=== PATIENT | male | born 1950 | race Caucasian/White ===

== ENCOUNTER → 2016-06-04 | Outpatient (CLI) | payer MEDICARE, OTHER ==
[~2016-06-04] MED LIST: ASPI-586 PO; GABA-486 PO; LISI10TA2 PO; LOVA20TA2 PO; MULT-974 PO; SAWP1CAP PO
--- NOTE | 2016-06-04 14:05 | Diagnostic Imaging Report ---
PROCEDURE: CT urinary tract, rule out kidney stone. TECHNIQUE: Multiple contiguous axial images were obtained through the abdomen and pelvis without the use of intravenous contrast. INDICATION: Left upper quadrant pain. FINDINGS: The lung bases appear clear. The liver, the gallbladder, the spleen, the adrenals, and the pancreas appear unremarkable. The kidneys have no hydronephrosis or focal lesion identified on this unenhanced exam. No urinary tract stones seen. The urinary bladder wall is thickened, may relate to cystitis. The prostate is mildly prominent. The bladder wall thickening could also be secondary to chronic prostate-related obstructive changes. No significant dilatation of the bladder is seen, however. The appendix is normal. No bowel obstruction. There is no significant fluid collection or free fluid in the abdomen or pelvis. The abdominal aorta is normal in caliber. The osseous structures demonstrate prominent degenerative changes in the thoracolumbar spine and fusion of the SI joints. IMPRESSION: No urinary tract stones. No hydronephrosis. The urinary bladder wall is thickened which could relate to cystitis or from chronic postobstructive changes. Dictated by: Dictated on workstation # [id number]
== END ==
LOC: RAD 09:32
PROVIDERS: ATTEND Nurse Practitioner Adult Health
DX: R10.12 Left upper quadrant pain (principal)
CPT/HCPCS: 74176

== ENCOUNTER 2016-06-18 13:20 | Outpatient (CLI) | payer MEDICARE, OTHER ==
[~2016-06-18] VITALS: Ht 170.2 cm; Wt 89.8 kg
[2016-06-18] MEDS ORDERED: MULT-974 PO (13:29)
[2016-06-18] MEDS ORDERED: ASPI-586 PO (13:29)
[2016-06-18] MEDS ORDERED: SAWP1CAP PO (13:29)
[2016-06-18] MEDS ORDERED: LISI10TA2 PO (13:29)
[2016-06-18] MEDS ORDERED: GABA-486 PO (13:29)
[2016-06-18] MEDS ORDERED: LOVA20TA2 PO (13:29)
== END 2016-06-18 13:30 ==
LOC: PREOP 13:20
PROVIDERS: ATTEND Surgery
DX: Z01.818 Encounter for other preprocedural examination (principal); R10.32 Left lower quadrant pain

== ENCOUNTER 2016-06-22 06:56 | Day surgery (SDC) | payer MEDICARE, OTHER ==
[~2016-06-22] VITALS: Ht 170.2 cm; Wt 89.8 kg
--- OUTSIDE RECORDS SUMMARY | 2016-06-22 06:59 | XMS REPORT | Continuity of Care Document ---
Author Author [facility] Organization [facility] Address Unknown Phone Unavailable Care Team Providers Care Lens Cleaner Name Role Phone JARRED PERSNO MD PCP Insurance Providers Payer Name Policy Number Subscriber Name Relationship [employer] [id number] Cristian Bro 18 Self / Same As Patient Enter Insurance Name [id number] Cristian Bro 18 Self / Same As Patient Advance Directives Directive Response Recorded Date/Time Advance Directives No 06/18/16 1:12pm Organ Donor No 06/18/16 1:12pm Resuscitation Status Full Code 06/18/16 1:12pm Problems No problem information available. Medications Current Home Medications Medication Dose Units Route Directions Days/Qty Instructions Start Date Lovastatin 20 Mg 20 Mg Oral Bedtime 06/18/16 Lisinopril 10 Mg 10 Mg Oral Daily 06/18/16 Multivitamin 1 Each 1 Each Oral Daily 06/18/16 Gabapentin 100 Mg 100 Mg Oral Twice A Day 06/18/16 Saw Annie Xtr/Zinc Picolin 1 Each 1 Each Oral Daily 06/18/16 Aspirin 81 Mg 81 Mg Oral Daily 06/18/16 Social History Social History Problem Response Recorded Date/Time Alcohol Use Past History 06/18/2016 1:12pm Recreational Drug Use No 06/18/2016 1:12pm Recent Foreign Travel No 06/18/2016 1:14pm Recent Infectious Disease Exposure No 06/18/2016 1:14pm Smoking Status Former Smoker 06/18/2016 1:12pm Recent Hopitalizations No 06/18/2016 1:12pm Query Response Start Date Stop Date Smoking Status Former Smoker Hospital Discharge Instructions No hospital discharge instructions. Plan of Care Discharge Date 06/18/16 1:30pm Prescriptions See Medication Section Functional Status No functional status results. Allergies, Adverse Reactions, Alerts No known allergies. Immunizations No immunization records. Vital Signs Acute Vital Signs Vital Response Date/Time Height (Feet) 5 feet 06/18/2016 1:12pm Height (Inches) 7.00 inches 06/18/2016 1:12pm Height (Calculated Centimeters) 170.330433 cm 06/18/2016 1:12pm Weight (Pounds) 198 pounds 06/18/2016 1:12pm Weight (Ounces) 0.0 oz 06/18/2016 1:12pm Weight (Calculated Grams) 96851.29 gm 06/18/2016 1:12pm Weight (Calculated Kilograms) 89.013744 kilograms 06/18/2016 1:12pm Calculated BMI 31.0 06/18/2016 1:12pm Results No known relevant diagnostic tests, laboratory data and/or discharge summary. Procedures No known history of procedures. Encounters Encounter Location Arrival/Admit Date Discharge/Depart Date Attending Provider Departed Clinic [facility] 06/18/16 1:20pm 06/18/16 1: 30pm ELMER PURCELL DO Registered Clinic [facility] 06/04/16 9:32am BILLIE ABARCA
--- OUTSIDE RECORDS SUMMARY | 2016-06-22 06:59 | XMS REPORT | Continuity of Care Document ---
Author Author [facility] Organization [facility] Address Unknown Phone Unavailable Care Team Providers Care Lead Handler Name Role Phone JARRED PERSON MD PCP Insurance Providers Payer Name Policy Number Subscriber Name Relationship [employer] [id number] Cristian Bro 18 Self / Same As Patient Enter Insurance Name [id number] Cristian Bro 18 Self / Same As [...] 7.00 inches 06/18/2016 1:12pm Height (Calculated Centimeters) 170.751983 cm 06/18/2016 1:12pm Weight (Pounds) 198 pounds 06/18/2016 1:12pm Weight (Ounces) 0.0 oz 06/18/2016 1:12pm Weight (Calculated Grams) 00055.29 gm 06/18/2016 1:12pm Weight (Calculated Kilograms) 89.979442 kilograms 06/18/2016 1:12pm Calculated BMI 31.0 06/18/2016 1:12pm Results No known relevant diagnostic tests, laboratory data and/or discharge summary. Procedures No known history of procedures. Encounters Encounter Location Arrival/Admit Date Discharge/Depart Date Attending Provider Departed Clinic [facility] 06/18/16 1:20pm 06/18/16 1: 30pm ELMER PURCELL DO Registered Clinic [facility] 06/04/16 9:32am BILLIE ABARCA
[2016-06-22] MEDS ORDERED: NS IV 1000 ML 1,000 ML IV STA (07:05)
[2016-06-22] MEDS ORDERED: LIDOCAINE JELLY 2% (XYLOCAINE) 5 ML TUBE MM PRN (07:15)
[2016-06-22] MEDS ORDERED: NALOXONE 0.4 MG/ML 1 ML (NARCAN) VIAL IVP PRN (07:15)
[2016-06-22] MEDS ORDERED: FLUMAZENIL (ROMAZICON) 0.1 MG/ML 5 ML VIAL INJ PRN (07:15)
[2016-06-22] MEDS ORDERED: proPOfol 200 MG/20 ML (DIPRIVAN) VIAL IV ONE (07:18)
[2016-06-22] MEDS ORDERED: MIDAZOLAM 2 MG/2 ML (VERSED) VIAL ONE (07:19)
[2016-06-22 07:28] VITALS: BP 155/80
--- NOTE | 2016-06-22 07:45 | Progress Note-Pre Operative ---
Pre-Operative Progress Note H&P Reviewed The H&P was reviewed, patient examined and no changes noted. Date H&P Reviewed: Jun 22, 2016 Time H&P Reviewed: 07:45 Pre-Operative Diagnosis: change in bowel habits, family history colon cancer llq abd pain ELMER PURCELL DO Jun 22, 2016 07:45
--- NOTE | 2016-06-22 08:18 | Progress Note-Post Operative ---
Post-Operative Progess Note Pre-Operative Diagnosis change in bowel habits, family history colon cancer llq abd pain Post-Operative Diagnosis colon polyps Post-Op Procedure Note Date of Procedure: Jun 22, 2016 Name of Procedure: colonoscopy c hot bx polypecty x 3 Procedure Note/Findings see note Anesthesia Type pre tool room supervisor Estimated blood loss (mL): none Specimen(s) collected descending colon, sigmoid and distal sigmoid colon polyps ELMER PURCELL DO Jun 22, 2016 08:18
--- NOTE | 2016-06-22 08:19 | Discharge Inst-Simple/Standard ---
Discharge Inst-Standard Patient Instructions/Follow Up Plan of Care/Instructions/FU: 2 weeks Paula Activity as Tolerated: Yes Discharge Diet: Regular Diet ELMER PURCELL DO Jun 22, 2016 08:19
[2016-06-22 08:30] VITALS: BP 110/74
[2016-06-22 09:00] VITALS: BP 133/76
[2016-06-22 10:31] VITALS: BP 133/76
--- NOTE | 2016-06-22 10:56 | OPERATIVE REPORT ---
PROCEDURE PHYSICIAN: ELMER PURCELL DATE OF PROCEDURE: 06/22/2016 PREOPERATIVE DIAGNOSIS: 1. Family history of colon cancer. 2. Left lower quadrant abdominal pain. 3. Change in bowel habits. POSTOPERATIVE DIAGNOSES: Colon polyps. PROCEDURE: Colonoscopy with hot biopsy polypectomy x 3. SURGEON: Paula. ANESTHESIA: Per POWDER WORKER. ESTIMATED BLOOD LOSS: None. COMPLICATIONS: None. INDICATIONS: The patient is a 65-year-old male who has not had a colonoscopy to date. He has had change in bowel habits and some left lower quadrant abdominal pain. He understands the risks and benefits of procedure and wished to proceed with the procedure. Consent was signed on the chart. PROCEDURE: The patient was taken to the endoscopy suite, placed in left lateral recumbent position. Timeout was performed. Digital rectal exam was performed. There is no palpable polyps, masses, ulcerations. The scope was inserted in the rectum and advanced all the way to the cecum minimal difficulty. Prep was adequate. The scope was then slowly retracted back. There were no polyps, masses or ulcerations within the cecum, ascending, transverse colon. Within the descending colon, a small polyp was present which hot biopsy polypectomy was performed. The scope was continued be slowly retracted back. In the more proximal sigmoid a small polyp was present which hot biopsy polypectomy was performed. The scope was continued be slowly retracted back and in the distal sigmoid there is a 3rd polyp, which hot biopsy polypectomy was performed. The scope was continued to be slowly retracted back until it was in the rectum, where it was also retroflexed and there were some slight internal hemorrhoids. The scope was returned to its normal position and slowly withdrawn until completely removed noting no further pathology. RECOMMENDATIONS: The patient will follow-up in the office to discuss pathology in approximately two weeks. I would recommend repeat colonoscopy in 3 years. If he has any problems prior to that, he should be reevaluated at that time. Job ID: [id number] Dictated Date: 06/22/2016 08:21:52 Ict Customer Support Officer Date: 06/22/2016 10:50:43 / merari
== END 2016-06-22 09:15 | disposition home or self-care (01) ==
LOC: SDC 06:56
PROVIDERS: ATTEND Surgery
DX: D12.4 Benign neoplasm of descending colon (principal); D12.5 Benign neoplasm of sigmoid colon; K63.5 Polyp of colon; R19.4 Change in bowel habit; K64.8 Other hemorrhoids; Z80.0 Family history of malignant neoplasm of digestive organs

== ENCOUNTER 2019-03-14 09:22 | Outpatient (CLI) | payer MEDICARE, OTHER ==
[~2019-03-14] VITALS: Ht 170.2 cm; Wt 90.0 kg
[~2019-03-14 09:22] MED LIST changes: -SAWP1CAP PO; +[UNRECOGNIZED DRUG - OTHER] PO
[2019-03-14] MEDS ORDERED: OMG1KC PO (09:29)
[2019-03-14] MEDS ORDERED: NAPR220T66 PO (09:29)
[2019-03-14] MEDS ORDERED: SAW1CAPS6 PO (09:29)
[2019-03-15] MEDS ORDERED: IBUP-2055 PO (08:00)
[2019-03-15] MEDS ORDERED: ACET-77 PO (08:00)
[2019-03-15] MEDS ORDERED: CHON400C PO (08:00)
== END 2019-03-14 09:42 | disposition home or self-care (01) ==
LOC: PREOP 09:22
PROVIDERS: ATTEND Surgery
DX: Z01.818 Encounter for other preprocedural examination (principal)

== ENCOUNTER 2019-03-15 07:22 | Day surgery (SDC) | payer MEDICARE, OTHER ==
[~2019-03-15] VITALS: Ht 170 cm; Wt 90.0 kg
[2019-03-15] VITALS (11 sets, daily range): BP systolic 137–174; BP diastolic 76–90
[~2019-03-15 07:22] MED LIST changes: +NAPR220T66 PO; +OMG1KC PO; +SAW1CAPS6 PO
--- NOTE | 2019-03-15 07:39 | Progress Note-Pre Operative ---
Pre-Operative Progress Note H&P Reviewed The H&P was reviewed, patient examined and no changes noted. Date Seen by Provider: Mar 15, 2019 Time Seen by Provider: 07:38 Date H&P Reviewed: Mar 15, 2019 Time H&P Reviewed: 07:38 Pre-Operative Diagnosis: cyst back ELMER PURCELL DO Mar 15, 2019 7:38 am
[2019-03-15] MEDS ORDERED: ONDANSETRON 4 MG/2 ML (SDV) Z0FRAN ONE (07:41)
[2019-03-15] MEDS ORDERED: LIDOCAINE PF 2% 5 ML (XYLOCAINE) VIAL ONE (07:41)
[2019-03-15] MEDS ORDERED: MIDAZOLAM 2 MG/2 ML (VERSED) VIAL ONE (07:41)
[2019-03-15] MEDS ORDERED: proPOfol 200 MG/20 ML (DIPRIVAN) VIAL IV ONE (07:41)
[2019-03-15] MEDS ORDERED: fentaNYL INJECTION 100 MCG/2 ML AMP ONE (07:41)
[2019-03-15] MEDS ORDERED: BUP/EPI 0.5% 1:200,000 (SENSORCAINE) 30 ML VIAL ONE (07:52)
[2019-03-15] MEDS ORDERED: LACTATED RINGERS 1,000 ML IV PRN (07:53)
[2019-03-15] MEDS ORDERED: CHON400C PO (08:00)
[2019-03-15] MEDS ORDERED: ceFAZolin 2 GM IV Premixed 50 ML IV ONE (08:00)
[2019-03-15] MEDS ORDERED: IBUP-2473 PO (08:00)
[2019-03-15] MEDS ORDERED: ACET-78 PO (08:00)
[2019-03-15] MEDS ORDERED: PHENYLEPHRINE 100 MCG/ML 10 ML (ANESTHESIA) SYR ONE (08:45)
[2019-03-15] MEDS ORDERED: SEVOFLURANE (ULTANE) 15 ML INHAL SOLN ONE ×2 (08:45→09:36)
--- NOTE | 2019-03-15 09:39 | Progress Note-Post Operative ---
Post-Operative Progess Note Surgeon (s)/Community Living Specialist (s) Surgeon ELMER PURCELL DO Community Living Specialist: na Pre-Operative Diagnosis cyst back Post-Operative Diagnosis same Procedure & Operative Findings Date of Procedure 03/15/19 Procedure Performed/Findings excision cyst of back 4x3 cm Anesthesia Type gen Estimated Blood Loss Estimated blood loss (mL): min Specimens/Packing Specimens Removed cyst back ELMER PURCELL DO Mar 15, 2019 09:39
--- NOTE | 2019-03-15 09:49 | Discharge Inst-Simple/Standard ---
Discharge Inst-Standard Patient Instructions/Follow Up Plan of Care/Instructions/FU: 12-14 days Paula Activity as Tolerated: No Discharge Diet: Regular Diet Other Inst to Patient Follow up Appt: Make appointment for 12-14 days Instructions: No strenuous activity. May shower in 24 hours, no tub bath or soaking. Use incentive spirometer at home as directed. No Smoking Skin/Wound Care: May remove bandages in 24 hours. Symptoms to Report: Appetite Changes, Extremity Discoloration, Numbness/Tingling, Swelling Increased, Bleeding Excessive, Eyesight Changes, Pain Increased, Urine Color Change, Constipation(Persistent), Fever over 101 degree F, Pain/Pressure in chest, Urinating Difficulty, Cough Up/Vomit Blood, Heart Beat Irreg/Pounding, Pain/Pressure in jaw, Vaginal Bleeding Increase, Cramps in feet or legs, Lightheadedness, Pain/Pressure in shoulder, Diarrhea(Persistent), Memory Changes Suddenly, Questions/Concerns, Weight gain consecutive days, Dizziness/Fainting, Nausea/Vomiting, Shortness of Breath, Weight gain over 2 pounds If questions or concerns contact your physician Or seek help at emergency department. ELMER PURCELL DO Mar 15, 2019 09:45
[2019-03-15] MEDS ORDERED: ONDANSETRON 4 MG/2 ML (SDV) Z0FRAN IVP PRN (10:00)
[2019-03-15] MEDS ORDERED: HYDROmorphone 2 MG/ML VIAL (DILAUDID) IV ONE (10:00)
--- NOTE | 2019-03-15 12:01 | Anesthesia-General Post-Op ---
General Patient Condition Mental Status/LOC: Same as Preop Cardiovascular: Satisfactory Nausea/Vomiting: Absent Respiratory: Satisfactory Pain: Controlled Complications: Absent Post Op Complications Complications None Follow Up Care/Instructions Patient Instructions None needed. Anesthesia/Patient Condition Patient Condition Patient is doing well, no complaints, stable vital signs, no apparent adverse anesthesia problems. No complications reported per nursing. STACIE MORRELL CRNA Mar 15, 2019 12:01
--- NOTE | 2019-03-15 15:45 | OPERATIVE REPORT ---
DATE OF SERVICE: 03/15/2019 PREOPERATIVE DIAGNOSIS: Cyst of back. POSTOPERATIVE DIAGNOSIS: Cyst of back. PROCEDURE: Excision of back cyst 4 x 3 cm. SURGEON: Elmer Mitchell DO ANESTHESIA: General. ESTIMATED BLOOD LOSS: Minimal. COMPLICATIONS: None. INDICATIONS: The patient is a 68-year-old male with a cyst on his back that he has had for a long time. He states he has had it previously drained. He wishes to have it removed. He understands risks and benefits of procedure and wished to proceed with procedure. Consent was signed in the chart. DESCRIPTION OF PROCEDURE: The patient was taken to the operating suite, was placed in the right lateral recumbent position. Timeout was performed. Local anesthetic was infiltrated. An elliptical incision was made over the cyst keeping a little punctate opening removing this portion of the skin. The cyst was then dissected around circumferentially with Metzenbaum's and cyst of the skin and the attachment to the cyst and the cyst were all removed intact. Overall, dimensions were 4 x 3 cm. The wound was then irrigated and the skin was then closed using 2-0 Prolene in vertical mattress fashion. The area was then washed and dried and sterile bandage was applied. The patient tolerated procedure well without any complications. He was taken to recovery room in stable condition. Job ID: [id number] DocumentID: [id number] Dictated Date: 03/15/2019 13:31:16 Passenger Relations Representative Date: 03/15/2019 15:45:17 Dictated By: ELMER MITCHELL DO
== END 2019-03-15 11:58 | disposition home or self-care (01) ==
LOC: SDC 07:22
PROVIDERS: ATTEND Surgery
DX: L72.0 Epidermal cyst (principal); I10 Essential (primary) hypertension; I63.9 Cerebral infarction, unspecified; F17.200 Nicotine dependence, unspecified, uncomplicated; Z79.899 Other long term (current) drug therapy; Z79.82 Long term (current) use of aspirin; Z80.0 Family history of malignant neoplasm of digestive organs; Z82.49 Family history of ischemic heart disease and other diseases of the circulatory system; Z82.0 Family history of epilepsy and other diseases of the nervous system; E78.5 Hyperlipidemia, unspecified
CPT/HCPCS: 87081; 88304

== ENCOUNTER 2022-05-10 13:16 | Inpatient (IN) | payer MEDICARE, OTHER ==
[~2022-05-10] VITALS: Ht 170 cm; Wt 95.8 kg
[~2022-05-10 13:16] MED LIST changes: +ACET-78 PO; +CHON400C PO; +IBUP-2473 PO; -LISI10TA2 PO; +LISI10TA25 PO
--- NOTE | 2022-05-10 13:24 | ED General ---
General Stated Complaint: SOB; TRISHA ANKLE SWELLING Source of Information: Patient Exam Limitations: No Limitations History of Present Illness Date Seen by Provider: May 10, 2022 Time Seen by Provider: 13:24 Initial Comments Patient is a 71 year old male who presents with shortness of breath waking him from sleep bilateral leg swelling. Symptoms gradually worsened over the past week. Patient is approximately 4 weeks recovering from viral syndrome. He denies fever chills, nausea vomiting or sweats. He does report occasional cough and chest congestion. Denies palpitations. Does report dyspnea with exertion. Patient has not been evaluated by his PCP for the symptoms. Timing/Duration: 4-6 Hours Severity: Moderate Modifying Factors: improves with Other Associated Systoms: Other Allergies and Home Medications Allergies Coded Allergies: No Known Drug Allergies (Unverified , 06/18/16) Patient Home Medication List Home Medication List Reviewed: Yes Acetaminophen (Acetaminophen) 500 Mg Tablet, 600 MG PO HS, (Reported) Entered as Reported by: MAN HAJI on 03/15/19 0800 Aspirin (Aspir 81) 81 Mg Tablet.dr, 81 MG PO DAILY, (Reported) Entered as Reported by: SANDEE YEE on 06/18/16 1329 Chondroitin Sulfate A Sodium (Optiflex-C) 400 Mg Capsule, 400 MG PO DAILY, (Reported) Entered as Reported by: MAN HAJI on 03/15/19 0800 Gabapentin (Gabapentin) 100 Mg Capsule, 100 MG PO DAILY, (Reported) Entered as Reported by: SANDEE YEE on 06/18/16 1329 Ibuprofen (Ibuprofen) 200 Mg Tablet, 600 MG PO HS, (Reported) Entered as Reported by: MAN HAJI on 03/15/19 0800 Lisinopril (Lisinopril) 10 Mg Tablet, 10 MG PO DAILY, (Reported) Entered as Reported by: SANDEE YEE on 06/18/16 1329 Lovastatin (Lovastatin) 20 Mg Tablet, 20 MG PO HS, (Reported) Entered as Reported by: SANDEE YEE on 06/18/16 1329 Multivitamin (Multi-Vitamin Daily) 1 Each Tablet, 1 EACH PO DAILY, (Reported) Entered as Reported by: SANDEE YEE on 06/18/16 1329 [place] 3 Polyunsat Fatty Acids (Fish Oil 1,000 mg Capsule) 1,000 Mg Cap, 1,000 MG PO DAILY, (Reported) Entered as Reported by: SANDEE YEE on 03/14/19928 Saw Manor Xtr/Zinc Picolin (Saw Manor Ext 160 mg Cap) 1 Each Capsule, 1 EACH PO DAILY, (Reported) Entered as Reported by: SANDEE YEE on 03/14/19928 Review of Systems Review of Systems Constitutional: see HPI EENTM: see HPI Respiratory: see HPI Cardiovascular: see HPI Gastrointestinal: see HPI Genitourinary: see HPI Musculoskeletal: see HPI Skin: see HPI Psychiatric/Neurological: See HPI Hematologic/Lymphatic: See HPI Immunological/Allergic: see HPI All Other Systems Reviewed Negative Unless Noted: No Past Vzbegul-Bihvog-Ewthpe Hx Patient Social History Tobacco Use?: No Immunizations Up To Date Tetanus Booster (TDap): Unknown Seasonal Allergies Seasonal Allergies: Yes Past Medical History Surgeries: No Respiratory: No Currently Using CPAP: No Currently Using BIPAP: No Cardiac: Yes Hypertension Neurological: Yes Stroke Reproductive Disorders: No Sexually Transmitted Disease: No HIV/AIDS: No Genitourinary: Yes Benign Prostatic Hyperpl Gastrointestinal: No Musculoskeletal: No Endocrine: No HEENT: No Loss of Vision: Denies Hearing Impairment: Denies Cancer: No Psychosocial: No Integumentary: Yes (cyst on back) Blood Disorders: No Physical Exam Vital Signs Vital Signs - First Documented Capillary Refill : Height, Weight, BMI Height: 5'7.00" Weight: 198lbs. 0.0oz. 89.397519yp; 31.14 BMI Method: General Appearance: No Apparent Distress, WD/WN Eyes: Bilateral Eye Normal Inspection, Bilateral Eye PERRL HEENT: PERRL/EOMI, Normal ENT Inspection, Pharynx Normal Neck: Supple Respiratory: Decreased Breath Sounds Cardiovascular: Irregularly Irregular, Other (Bipedal edema) Gastrointestinal: Non Tender, Soft Neurologic/Psychiatric: Alert, Oriented x3, No Motor/Sensory Deficits Focused Exam Sepsis Stage: Ruled Out Progress/Results/Core Measures Suspected Sepsis SIRS Temperature: Pulse: Respiratory Rate: Laboratory Tests 05/10/22 14:06: White Blood Count 15.2H Blood Pressure / Mean: Laboratory Tests 05/10/22 14:06: Creatinine 0.71, Platelet Count 479H, Total Bilirubin 0.3 Results/Orders Lab Results Laboratory Tests Test 05/10/22 13:51 05/10/22 14:06 Range/Units Influenza Type A (RT-PCR) Not Detected Not Detecte Influenza Type B (RT-PCR) Not Detected Not Detecte SARS-CoV-2 RNA (RT-PCR) Not Detected Not Detecte White Blood Count 15.2 H 4.3-11.0 10^3/uL Red Blood Count 4.36 4.30-5.52 10^6/uL Hemoglobin 13.0 L 13.3-17.7 g/dL Hematocrit 39 L 40-54 % Mean Corpuscular Volume 90 80-99 fL Mean Corpuscular Hemoglobin 30 25-34 pg Mean Corpuscular Hemoglobin Concent 33 32-36 g/dL Red Cell Distribution Width 13.1 10.0-14.5 % Platelet Count 479 H 130-400 10^3/uL Mean Platelet Volume 9.6 9.0-12.2 fL Immature Granulocyte % (Auto) 1 % Neutrophils (%) (Auto) 64 42-75 % Lymphocytes (%) (Auto) 23 12-44 % Monocytes (%) (Auto) 12 0-12 % Eosinophils (%) (Auto) 1 0-10 % Basophils (%) (Auto) 0 0-10 % Neutrophils # (Auto) 9.7 H 1.8-7.8 10^3/uL Lymphocytes # (Auto) 3.5 1.0-4.0 10^3/uL Monocytes # (Auto) 1.8 H 0.0-1.0 10^3/uL Eosinophils # (Auto) 0.1 0.0-0.3 10^3/uL Basophils # (Auto) 0.1 0.0-0.1 10^3/uL Immature Granulocyte # (Auto) 0.1 0.0-0.1 10^3/uL Neutrophils % (Manual) 67 % Lymphocytes % (Manual) 18 % Monocytes % (Manual) 14 % Eosinophils % (Manual) 0 % Basophils % (Manual) 1 % Band Neutrophils 0 % D-Dimer 4.04 H 0.00-0.49 UG/ML Sodium Level 136 135-145 MMOL/L Potassium Level 4.7 3.6-5.0 MMOL/L Chloride Level 98 98-107 MMOL/L Carbon Dioxide Level 30 21-32 MMOL/L Anion Gap 8 5-14 MMOL/L Blood Urea Nitrogen 9 7-18 MG/DL Creatinine 0.71 0.60-1.30 MG/DL Estimat Glomerular Filtration Rate 97 BUN/Creatinine Ratio 13 Glucose Level 120 H 70-105 MG/DL Calcium Level 9.5 8.5-10.1 MG/DL Corrected Calcium 9.7 8.5-10.1 MG/DL Total Bilirubin 0.3 0.1-1.0 MG/DL Aspartate Amino Transf (AST/SGOT) 37 H 5-34 U/L Alanine Aminotransferase (ALT/SGPT) 90 H 0-55 U/L Alkaline Phosphatase 177 H 40-136 U/L Troponin I < 0.30 <0.30 NG/ML Pro-B-Type Natriuretic Peptide 342.0 H <125.0 PG/ML Total Protein 6.7 6.4-8.2 GM/DL Albumin 3.7 3.2-4.5 GM/DL My Orders Orders - CHRISTIN ZAPATA DO Cbc With Automated Diff (05/10/22 13:53) Comprehensive Metabolic Panel (05/10/22 13:53) Troponin I Fs (05/10/22 13:53) Probnp Fs (05/10/22 13:53) Chest 1 View Ap/Pa Only (05/10/22 13:53) Fibrin Degradation Products (05/10/22 13:53) Covid 19 Inhouse Test (05/10/22 13:54) Influenza A And B By Pcr (05/10/22 13:54) Isolation Central Supply Req (05/10/22 13:54) Diltiazem Drip Pre-Mix (Cardizem Drip Pr (05/10/22 14:30) Diltiazem Injection (Cardizem Injection) (05/10/22 14:30) Manual Differential (05/10/22 14:06) Ekg Tracing (05/10/22 14:50) Ekg Tracing (05/10/22 14:50) Ct Angio Chest W (05/10/22 14:54) Iohexol Injection (Omnipaque 350 Mg/Ml 1 (05/10/22 15:15) Received Contrast (Hold Metformin- Contr (05/10/22 15:15) Sodium Chloride Flush (Catheter Flush Sy (05/10/22 15:15) Ns (Ivpb) (Sodium Chloride 0.9% Ivpb Bag (05/10/22 15:15) Digoxin Injection (Lanoxin Injection) (05/10/22 16:15) Medications Given in ED Current Medications Medications Dose Ordered Sig/Judy Route Start Time Stop Time Status Last Admin Dose Admin Digoxin 0.5 mg ONCE ONCE IV 05/10/22 16:15 05/10/22 16:16 DC 05/10/22 16:15 0.5 MG Diltiazem HCl 20 mg ONCE ONCE IVP 05/10/22 14:30 05/10/22 14:31 DC 05/10/22 14:37 20 MG Iohexol 100 ml ONCE ONCE IV 05/10/22 15:15 05/10/22 15:16 DC 05/10/22 15:34 100 ML Sodium Chloride 100 ml ONCE ONCE IV 05/10/22 15:15 05/10/22 15:16 DC 05/10/22 15:34 100 ML Vital Signs/I&O 05/10/22 05/10/22 05/10/22 05/10/22 13:37 13:37 14:37 14:38 Temp 36.6 Pulse 95 185 185 Resp 17 B/P (MAP) 199/97 (131) 125/69 125/69 O2 Delivery Room Air Room Air Capillary Refill : Departure Communication (Admissions) CTA chest: No findings of PE. Pulmonary vascular congestion noted to present. Chest x-ray: No discrete infiltrate per Patient with shortness of breath and nocturnal paroxysmal dyspnea with findings of new onset A. fib with RVR in the emergency department. Patient placed on Cardizem for rate control. Elevated D-dimer, CTA negative for presence of PE. Symptoms improved with treatment. Will admit to the hospital service with cardiology consult. Impression Primary Impression: New onset a-fib Additional Impression: Atrial fibrillation with RVR Disposition: ADMITTED INPATIENT Condition: Critical Departure-Patient Inst. Referrals: ROSALINDA ZAYAS APRN (PCP) Primary Care Physician [facility] (Family) Primary Care Physician CHRISTIN ZAPATA DO May 10, 2022 13:24
[2022-05-10 14:20] LABS: BASOPHILS # (AUTO) 0.1 10^3/uL (0.0-0.1); BASOPHILS % (AUTO) 0 % (0-10); EOSINOPHILS # (AUTO) 0.1 10^3/uL (0.0-0.3); EOSINOPHILS % (AUTO) 1 % (0-10); HEMATOCRIT 39 % (40-54); LYMPHOCYTES # (AUTO) 3.5 10^3/uL (1.0-4.0); LYMPHOCYTES % (AUTO) 23 % (12-44); MEAN CORPUSCULAR HEMOGLOBIN 30 pg (25-34); MEAN CORPUSCULAR HGB CONC 33 g/dL (32-36); MEAN CORPUSCULAR VOLUME 90 fL (80-99); MEAN PLATELET VOLUME 9.6 fL (9.0-12.2); MONOCYTES # (AUTO) 1.8 10^3/uL (0.0-1.0); MONOCYTES % (AUTO) 12 % (0-12); NEUTROPHILS # (AUTO) 9.7 10^3/uL (1.8-7.8); NEUTROPHILS % (AUTO) 64 % (42-75); PLATELET COUNT 479 10^3/uL (130-400); WHITE BLOOD COUNT 15.2 10^3/uL (4.3-11.0)
--- NOTE | 2022-05-10 14:25 | Diagnostic Imaging Report ---
EXAMINATION: Chest 1 view HISTORY: SOA COMPARISON: None available. FINDINGS: Heart size is enlarged. Left-sided pleural effusion with mild left basilar atelectasis or consolidation. No pneumothorax. The osseous structures are intact. IMPRESSION: 1. Cardiomegaly with possible small left pleural effusion and left basilar atelectasis or consolidation. Dictated by: Dictated on workstation # [id number]
[2022-05-10] MEDS ORDERED: dilTIAZem DRIP PRE-MIX 125 ML IV SCH (14:30)
[2022-05-10 14:48] LABS: ALANINE AMINOTRANSFERASE 90 U/L (0-55); ALKALINE PHOSPHATASE 177 U/L (40-136); BILIRUBIN,TOTAL 0.3 MG/DL (0.1-1.0); BUN/CREATININE RATIO 13; CALCIUM 9.5 MG/DL (8.5-10.1); CARBON DIOXIDE 30 MMOL/L (21-32); CHLORIDE 98 MMOL/L (98-107); CREATININE SERUM 0.71 MG/DL (0.60-1.30); GFR ESTIMATED 97; GLUCOSE 120 MG/DL (70-105); POTASSIUM 4.7 MMOL/L (3.6-5.0); SODIUM 136 MMOL/L (135-145); TOTAL PROTEIN 6.7 GM/DL (6.4-8.2)
[2022-05-10 14:49] LABS: ALBUMIN 3.7 GM/DL (3.2-4.5)
[2022-05-10 14:57] LABS: BAND NEUTROPHILS 0 %; BASOPHILS % (MANUAL) 1 %; EOSINOPHILS % (MANUAL) 0 %; LYMPHOCYTES % (MANUAL) 18 %; MONOCYTES % (MANUAL) 14 %; NEUTROPHILS % (MANUAL) 67 %
[2022-05-10] MEDS ORDERED: CATHETER FLUSH 10 ML SYR IV PRN (15:15)
[2022-05-10] MEDS ORDERED: IOHEXOL 350 MG/ML 100 ML (OMNIPAQUE 350) VIAL IV ONE (15:15)
[2022-05-10] MEDS ORDERED: HOLD METFORMIN - RECEIVED CONTRAST 20 ML VIAL IV SCH (15:15)
[2022-05-10] MEDS ORDERED: NS 100 ML (IVPB) BAG IV ONE (15:15)
--- NOTE | 2022-05-10 15:49 | Diagnostic Imaging Report ---
PROCEDURE: CT angiography of the chest with contrast. TECHNIQUE: Multiple contiguous axial images were obtained through the chest after uneventful bolus administration of intravenous contrast. 3D reconstructed CTA MIP acquisitions were also performed. Auto Exposure Controls were utilized during the CT exam to meet ALARA standards for radiation dose reduction. INDICATION: Dyspnea with elevated D-dimer There is good opacification of the pulmonary arteries without intraluminal filling defect. Thoracic aorta is of normal caliber. There is large pericardial effusion with small right and [id number] left pleural effusion. There is left basilar atelectasis and/or pneumonitis. No pathologically enlarged adenopathy is seen within the thorax. Upper abdominal sections reveal no acute abnormality. IMPRESSION: No pulmonary embolism is identified however there is large amount of pericardial fluid with small amount of right and moderate amount of left pleural fluid present. Dictated by: Dictated on workstation # [id number]
[2022-05-10] MEDS ORDERED: DIGOXIN 0.25 MG/ML (LANOXIN) 2 ML AMP IV ONE (16:15)
[2022-05-10] MEDS ORDERED: ONDANSETRON 4 MG/2 ML (SDV) Z0FRAN IV PRN (18:30)
[2022-05-10] MEDS ORDERED: ANTACID SUSP 30 ML UDC (MYLANTA) PO PRN (18:30)
[2022-05-10] MEDS ORDERED: BISACODYL 10 MG SUPP (DULCOLAX) PR PRN (18:30)
[2022-05-10] MEDS ORDERED: MELATONIN 3 MG TABLET PO PRN (18:30)
[2022-05-10] MEDS ORDERED: morphine INJ 4 MG/ML 1 ML (VIAL/SYRINGE) IV PRN (18:30)
[2022-05-10] MEDS ORDERED: diphenhydrAMINE 25 MG TAB (BENADRYL) PO PRN (18:30)
[2022-05-10] MEDS ORDERED: diphenhydrAMINE 50 MG/ML INJ (BENADRYL) IVP PRN (18:30)
[2022-05-10] MEDS ORDERED: ACETAMINOPHEN 325 MG TABLET PO PRN (18:30)
[2022-05-10] MEDS ORDERED: ALPRAZolam 0.5 MG (XANAX) TAB PO PRN (18:30)
[2022-05-10] MEDS ORDERED: polyethylene glycoL POWDER 17 GM (MIRALAX) PACK PO PRN (18:30)
[2022-05-10] MEDS ORDERED: ONDANSETRON 4 MG (ZOFRAN) ORAL DISSOLVE TAB PO PRN (18:30)
[2022-05-10] MEDS ORDERED: NS IV 500 ML 500 ML IV PRN (18:30)
--- NOTE | 2022-05-10 18:39 | Tele-ICU Consult ---
History of Present Illness History of Present Illness Date Seen by Provider: May 10, 2022 Time Seen by Provider: 18:34 History of Present Illness 71 yo M came to ED with progressive SOB and leg swelling. Found to be in a fib with RVR, IV Cardizem Recent viral syndrome CXR and CTA show no pulm emb but does have large pericardial effusion and pleural effusions L > R No CP, fevers, PMH HTN, HLD taking IVORY statin COVID and flu serology negative, Hb 13 WBC 15, d dimer 4.4, renal and liver function ok, trop normal, BNP 342, EKG a fib with RVR, On PE BP in ED 199/97 HR up to 180, BP 125/84 Lungs decreased BS [place] a fib, bilateral leg edema, tachycardia Abd non tender soft alert and oriented A] a fib with RVR, pericardial effusion P] continue IV Cardizem, echocardiogram, carrdiology consult Allergies and Home Medications Allergies Coded Allergies: No Known Drug Allergies (Unverified , 06/18/16) Home Medications Acetaminophen 500 Mg Tablet, 600 MG PO HS, (Reported) Aspirin 81 Mg Tablet.dr, 81 MG PO DAILY, (Reported) Chondroitin Sulfate A Sodium 400 Mg Capsule, 400 MG PO DAILY, (Reported) Gabapentin 100 Mg Capsule, 100 MG PO DAILY, (Reported) Ibuprofen 200 Mg Tablet, 600 MG PO HS, (Reported) Lisinopril 10 Mg Tablet, 10 MG PO DAILY, (Reported) Lovastatin 20 Mg Tablet, 20 MG PO HS, (Reported) Multivitamin 1 Each Tablet, 1 EACH PO DAILY, (Reported) [place] 3 Polyunsat Fatty Acids 1,000 Mg Cap, 1,000 MG PO DAILY, (Reported) Saw [place] Xtr/Zinc Picolin 1 Each Capsule, 1 EACH PO DAILY, (Reported) Past Medical/Social/Family Hx Patient Social History Tobacco Use?: No Smoking Status: Never a Smoker Smokeless Tobacco Frequency: Never a User Use of E-Cig and/or Vaping dev: No E-Cig and/or Vaping Freq: Never a User Substance use?: No Alcohol Use?: Yes Alcohol Frequency: Daily Pt stated abuse/neglect: No Current Status Advance Directives: No Communicates: Verbally Primary Language: Hebrew Preferred Spoken Language: Hebrew Is interpretation needed?: No Sensory deficits: Vision impairment Implanted or Applied Medical D: None Review of Systems Constitutional: see HPI Focused Exam Height, Weight, BMI Height: 5'7.00" Weight: 198lbs. 0.0oz. 89.832858bw; 30.00 BMI Method: Exam Exam Patient acknowledged, consented, and participated in this virtual visit which was conducted using real time audio/video Vital Signs Date Time Temp Pulse Resp B/P (MAP) Pulse Ox O2 Delivery O2 Flow Rate FiO2 05/10/22 17:21 36.4 145 18 125/84 95 Room Air 05/10/22 14:38 185 125/69 05/10/22 14:37 185 125/69 05/10/22 13:37 Room Air 05/10/22 13:37 36.6 95 17 199/97 (131) Room Air Height & Weight Height: 5'7.00" Weight: 198lbs. 0.0oz. 89.436713hb; 30.00 BMI Method: General Appearance: No Apparent Distress, WD/WN, Mild Distress HEENT: PERRL/EOMI, Normal ENT Inspection, Pharynx Normal Neck: Supple Respiratory: Decreased Breath Sounds, Other (BS diminished on left) Cardiovascular: Irregularly Irregular, Tachycardia, Other (Bipedal edema) Capillary Refill: Less Than 3 Seconds Gastrointestinal: normal bowel sounds, non tender, soft, distended Extremity: Other (+1 ankle edema) Neurologic/Psychiatric: Alert, Oriented x3, No Motor/Sensory Deficits Results Lab Laboratory Tests 05/10/22 14:06 Assessment/Plan Assessment/Plan A] a fib with RVR, pericardial effusion P] continue IV Cardizem, echocardiogram, carrdiology consult Critical Care: Critically Ill Patient Time spent with patient (mins): 30 OSBALDO TINSLEY MD May 10, 2022 18:39
[2022-05-10 20:11] LABS: BASOPHILS # (AUTO) 0.1 10^3/uL (0.0-0.1); BASOPHILS % (AUTO) 0 % (0-10); EOSINOPHILS % (AUTO) 0 % (0-10); HEMATOCRIT 44 % (40-54); LYMPHOCYTES # (AUTO) 3.8 10^3/uL (1.0-4.0); LYMPHOCYTES % (AUTO) 22 % (12-44); MEAN CORPUSCULAR HEMOGLOBIN 30 pg (25-34); MEAN CORPUSCULAR HGB CONC 32 g/dL (32-36); MEAN CORPUSCULAR VOLUME 94 fL (80-99); MEAN PLATELET VOLUME 10.3 fL (9.0-12.2); MONOCYTES # (AUTO) 1.8 10^3/uL (0.0-1.0); MONOCYTES % (AUTO) 10 % (0-12); NEUTROPHILS # (AUTO) 11.8 10^3/uL (1.8-7.8); NEUTROPHILS % (AUTO) 67 % (42-75); PLATELET COUNT 415 10^3/uL (130-400); WHITE BLOOD COUNT 17.6 10^3/uL (4.3-11.0)
[2022-05-10 20:28] VITALS: BP 125/84
[2022-05-10] MEDS ORDERED: RT-ALBUTEROL SULF 2.5 MG/3 ML PRE-MIX VIAL INH PRN (20:45)
[2022-05-10] MEDS: HEParin 1000 UNIT/ML (10ML VIAL) FOR BOLUS IV SCH (20:54)
[2022-05-10] MEDS: HEParin DRIP 25000 UNIT/500ML 500 ML IV SCH (21:07)
[2022-05-10] MEDS: dilTIAZem DRIP PRE-MIX 125 ML IV SCH (21:09)
[2022-05-10] MEDS: DOCUSATE SODIUM 100 MG (COLACE) CAP PO SCH (21:10)
[2022-05-10] MEDS: RT-ALBUTEROL SULF 2.5 MG/3 ML PRE-MIX VIAL INH SCH (22:05)
[2022-05-11] MEDS: HEParin 1000 UNIT/ML (10ML VIAL) FOR BOLUS IV SCH ×2 (02:28→06:28)
[2022-05-11] MEDS: dilTIAZem DRIP PRE-MIX 125 ML IV SCH ×2 (04:14→20:30)
[2022-05-11 05:38] LABS: BASOPHILS # (AUTO) 0.1 10^3/uL (0.0-0.1); BASOPHILS % (AUTO) 0 % (0-10); EOSINOPHILS % (AUTO) 0 % (0-10); HEMATOCRIT 37 % (40-54); HEMOGLOBIN 12.2 g/dL (13.3-17.7); LYMPHOCYTES # (AUTO) 3.5 10^3/uL (1.0-4.0); LYMPHOCYTES % (AUTO) 23 % (12-44); MEAN CORPUSCULAR HEMOGLOBIN 30 pg (25-34); MEAN CORPUSCULAR HGB CONC 33 g/dL (32-36); MEAN CORPUSCULAR VOLUME 92 fL (80-99); MEAN PLATELET VOLUME 9.8 fL (9.0-12.2); MONOCYTES # (AUTO) 1.8 10^3/uL (0.0-1.0); MONOCYTES % (AUTO) 12 % (0-12); NEUTROPHILS # (AUTO) 9.9 10^3/uL (1.8-7.8); NEUTROPHILS % (AUTO) 64 % (42-75); PLATELET COUNT 508 10^3/uL (130-400); WHITE BLOOD COUNT 15.3 10^3/uL (4.3-11.0)
[2022-05-11 06:06] LABS: ALBUMIN 3.4 GM/DL (3.2-4.5); BILIRUBIN,TOTAL 0.4 MG/DL (0.1-1.0); CREATININE SERUM 0.73 MG/DL (0.60-1.30); PHOSPHORUS 3.7 MG/DL (2.3-4.7); POTASSIUM 4.3 MMOL/L (3.6-5.0); TOTAL PROTEIN 6.2 GM/DL (6.4-8.2)
[2022-05-11] MEDS: MAGNESIUM 1 GM/100 ML IVPB 100 ML IV SCH (06:09)
[2022-05-11] MEDS: KCL 20 MEQ TAB (K-DUR) PO SCH (06:09)
[2022-05-11] MEDS: POTASSIUM CL 10MEQ/50ML IVPB 50 ML IV SCH (06:09)
[2022-05-11 06:58] LABS: CALCIUM 9.2 MG/DL (8.5-10.1)
[2022-05-11] MEDS: RT-ALBUTEROL SULF 2.5 MG/3 ML PRE-MIX VIAL INH SCH ×2 (07:51→20:59)
[2022-05-11] MEDS: DOCUSATE SODIUM 100 MG (COLACE) CAP PO SCH ×2 (09:21→20:34)
--- NOTE | 2022-05-11 10:42 | Diagnostic Imaging Report ---
CHEST 1 VIEW, AP/PA ONLY INDICATION: Pleural effusion. COMPARISON: 05/10/2022. FINDINGS: Stable enlarged cardiac silhouette. Left basilar opacity is similar and likely on the basis of effusion and pulmonary consolidation. No pneumothorax. IMPRESSION: 1. Stable small left pleural effusion with presumed atelectasis. 2. Stable enlargement of the cardiac silhouette due to pericardial effusion seen on prior CT. Dictated by: Dictated on workstation # [id number]
--- NOTE | 2022-05-11 10:58 | Tele-ICU Progress Note ---
Subjective Date Seen by a Provider: May 11, 2022 Time Seen by a Provider: 10:54 Subjective/Events-last exam (Tele-ICU Physician , Progress Note ) Service provided via interactive audio and video telecommunications E-CARE system to a patient admitted to ICU bed in [facility]. Available chart/ vitals / labs / Images reviewed Video assessment done using teleICU camera, rest of exam as per RN Discussed with RN Events overnight : Afebrile hemodynamically stable Respiratory - 2l I/O = Drips: Pressors- no Consultants: [facility] Hospital course: (05/10) 71yr old male admitted with Afib/rvr, pericardial effusion, and pleural effusion Patient is seen today due to persistent hypoxia A/P Acute resp insufficiency , hypoxia - 2 L - CXR and CTA show no pulm emb -NEG COVID and flu serology - keep neg fluid status pleural effusions L > R -no indications for TX thoracentesis now Afib with RVR, pericardial effusion ( post viral CM ? - cards t follow - ECHO pending -Cardizem gtt - heparin gtt Recent viral syndrome - 4 weeks , serology neg now . Leukocytosis - follow off ABX Lines : periph , (Central Line Necessity Reviewed) Rosas: void OG: Nutrition: po Analgesia: Anxiety/ delirium VTE Prophylaxis: hep gtt Stress Ulcer Prophylaxis: na Plans in collaboration with bedside consultants and IM MDs. Discussed with RN to reach out if any questions or concerns A total of 25 minutes of critical care time was devoted to this patient today, required to treat and/or prevent further deterioration of critical care condition ( as above ) . Sepsis Event Evaluation Height, Weight, BMI Height: 5'7.00" Weight: 198lbs. 0.0oz. 89.179693fn; 32.35 BMI Method: Exam Exam Patient acknowledged, consented, and participated in this virtual visit which was conducted using real time audio/video Vital Signs Date Time Temp Pulse Resp B/P (MAP) Pulse Ox O2 Delivery O2 Flow Rate FiO2 05/11/22 10:44 36.6 05/11/22 10:00 100 28 165/85 (111) 93 High Flow N/C 2.00 05/11/22 09:00 98 17 163/79 (107) 94 High Flow N/C 2.00 05/11/22 08:00 101 16 163/89 (113) 92 High Flow N/C 2.00 05/11/22 07:53 36.6 05/11/22 07:51 95 Nasal Cannula 2.00 05/11/22 07:50 95 Nasal Cannula 2.00 05/11/22 07:00 84 8 145/81 (102) 92 High Flow N/C 2.00 05/11/22 07:00 96 05/11/22 06:00 96 18 136/76 (96) 95 High Flow N/C 2.00 05/11/22 05:00 89 18 146/86 (106) 93 High Flow N/C 2.00 05/11/22 04:14 97 128/74 05/11/22 04:07 97 Nasal Cannula 2.00 05/11/22 04:00 93 14 122/88 (99) 94 High Flow N/C 2.00 05/11/22 03:00 97 19 125/76 (92) 95 High Flow N/C 2.00 05/11/22 02:46 36.2 High Flow N/C 2.00 05/11/22 02:30 98 22 129/68 (88) 94 High Flow N/C 2.00 05/11/22 01:00 97 05/11/22 01:00 99 127/80 (96) 94 High Flow N/C 2.00 05/11/22 00:09 95 Nasal Cannula 2.00 05/11/22 00:00 97 14 128/74 (92) 94 High Flow N/C 2.00 05/10/22 23:16 36.3 05/10/22 23:06 High Flow N/C 2.00 05/10/22 23:00 101 19 111/78 (89) 94 High Flow N/C 2.00 05/10/22 22:15 108 23 126/73 (90) 92 High Flow N/C 2.00 05/10/22 22:06 94 Nasal Cannula 2.00 05/10/22 21:09 145 125/84 05/10/22 21:07 95 05/10/22 21:00 126 21 141/75 (97) 95 High Flow N/C 2.00 05/10/22 20:28 36.4 145 95 21 05/10/22 20:15 115 16 137/88 (104) 95 High Flow N/C 2.00 05/10/22 20:00 96 Nasal Cannula 2.00 05/10/22 20:00 High Flow N/C 2.00 05/10/22 19:49 37.0 05/10/22 19:00 112 05/10/22 19:00 123 16 117/95 (102) 97 High Flow N/C 2.00 05/10/22 18:48 97 Nasal Cannula 2.00 05/10/22 18:30 146 17 125/86 (99) 96 Room Air 05/10/22 18:15 138 27 148/90 (109) 93 Room Air 05/10/22 18:13 149 05/10/22 17:21 36.4 145 18 125/84 95 Room Air 05/10/22 14:38 185 125/69 05/10/22 14:37 185 125/69 05/10/22 13:37 Room Air 05/10/22 13:37 36.6 95 17 199/97 (131) Room Air I & O 05/11/22 07:00 Intake Total 760 ml Output Total 425 ml Balance 335 ml Height & Weight Height: 5'7.00" Weight: 198lbs. 0.0oz. 89.405812pn; 32.35 BMI Method: General Appearance: No Apparent Distress, WD/WN, Mild Distress HEENT: PERRL/EOMI, Normal ENT Inspection, Pharynx Normal Neck: Supple Respiratory: Decreased Breath Sounds, Other (BS diminished on left) Cardiovascular: Irregularly Irregular, Tachycardia, Other (Bipedal edema) Capillary Refill: Less Than 3 Seconds Gastrointestinal: normal bowel sounds, non tender, soft, distended Extremity: Other (+1 ankle edema) Neurologic/Psychiatric: Alert, Oriented x3, No Motor/Sensory Deficits Results Lab Laboratory Tests 05/10/22 14:06 05/10/22 20:05 05/11/22 05:15 Assessment/Plan Assessment/Plan 1 ROSETTE CAAL MD May 11, 2022 10:58
[2022-05-11 11:22] LABS: ABG BASE EXCESS 3.4 MMOL/L (-2.5-2.5); ABG OXYGEN SATURATION 96 % (94-100); ABG PCO2 40 MMHG (35-45); ABG PH 7.45 (7.37-7.43); ABG PO2 70 MMHG (79-93); ABG TCO2 28.6 MMOL/L (21.0-31.0); ALLENS TEST YES-POS; INSPIRED O2 2 L; PATIENT TEMP 36.3; VENTILATOR NO
[2022-05-11] MEDS ORDERED: FISH1CAP15 PO (11:34)
[2022-05-11] MEDS ORDERED: SAW1CAPS8 PO (11:34)
[2022-05-11] MEDS ORDERED: ASPI-1238 PO (11:34)
[2022-05-11] MEDS ORDERED: METH100054 PO (11:34)
[2022-05-11] MEDS ORDERED: ACET-93 PO (11:34)
--- NOTE | 2022-05-11 12:13 | Consultation-Cardiology ---
HPI-Cardiology Cardiology Consultation Date of Consultation 05/11/22 Date of Admission 05/10/22 Time Seen by Provider: 16:49 HPI CC: Shortness of breath Reason for consult: Pericardial effusion and Atrial Fibrillation The patient is a 71 YO male with a past medical history of hypertension, and hyperlipidemia, and stoke who presented to the emergency room yesterday due to shortness of breath. The patient reports possibly carmencita COVID in early March, then carmencita another viral infection in mid March. He reports that he started developing shortness of breath with exertion during his second viral infection in mid March. His shortness of breath symptoms did not improve over time, and he reports difficulty breathing with sleeping. He does not have a known history of obstructive sleep apnea. Of note, he has a history of cigarette smoking, quitting 10 years ago and smoking 5 cigarettes per day for 20 years. He denies a history of coronary artery disease. He reports in 2018 seeing a granite fabricator in [place] after being referred by an rural carrier associate, and had a negative cardiac work up. was by bed side during the encounter. He denies chest pain. He denies previously being diagnosed with atrial fibrillation. DR. ESPINO: I had the pleasure of seeing Terrell in the intensive care unit [facility] in [facility] today. He has a history of hypertension and hyperlipidemia but no known history of any other cardiac disease. About 2 weeks ago he thought that he might have contracted COVID. He was having increasing shortness of breath as well as a cough and fever. His did home COVID test that was negative but both his and a visiting family member were positive for COVID. The patient did not seek medical attention. After about 5 days his symptoms improved. However, within about 2 days later, he developed recurrent dyspnea and fever. The symptoms persisted into the weekend. He was also having paroxysmal nocturnal dyspnea and orthopnea. For the past 48 hours he could not sleep because he was having so much trouble breathing. Yesterday he went to [facility] who then sent him to the emergency room at [place]. He was found to be in atrial fibrillation with a rapid ventricular rate and he was started on intravenous diltiazem infusion. He also underwent a CT angiogram of the chest to assess for possible pulmonary embolus and the CT scan revealed a pericardial effusion. The patient was then transferred to our intensive care unit on diltiazem infusion. Overnight, his breathing has improved. He also converted to sinus rhythm. He denies chest discomfort or palpitations. He has had some lightheaded spells but denies any syncope. Certain portions of this document may have been dictated utilizing voice recognition technology. Inherent to this technology, typographical and grammatical errors may exist. As much as I am diligent to identify and correct these mistakes, some errors may remain in the document. Home Medications & Allergies Allergies: Coded Allergies: No Known Drug Allergies (Unverified , 06/18/16) Home Medication List Reviewed: Yes [id number] Hx Patient Social History Marital Status: Smoking Status: Never a Smoker Type Used: Cigarettes Recent Hopitalizations: No Have you traveled recently?: No Alcohol Use?: Yes Substance type: Caffeine Immunizations Up To Date Tetanus Booster (TDap): Unknown Date of Influenza Vaccine: Feb 27, 2022 Review of Systems-General Review of Systems Constitutional: No chills, No diaphoresis EENTM: see HPI; No vision loss, No hoarseness Respiratory: dyspnea on exertion; No wheezing Cardiovascular: No chest pain Gastrointestinal: see HPI Genitourinary: see HPI Musculoskeletal: see HPI Skin: see HPI Psychiatric/Neurological: See HPI All Other Systems Reviewed Negative Unless Noted: No ECG Impression ECG Comment His initial electrocardiogram from the outside ER showed sinus tachycardia with frequent premature supraventricular complexes. Short while later, his electrocardiogram showed atrial fibrillation with a rapid ventricular rate. Physical Exam Physical Exam Vital Signs Vital Signs - First Documented 05/10/22 05/10/22 05/10/22 17:21 18:48 20:28 Pulse Ox 95 O2 Flow Rate 2.00 FiO2 21 Capillary Refill : Less Than 3 Seconds Height, Weight, BMI Height: 5'7.00" Weight: 198lbs. 0.0oz. 89.278673rj; 32.35 BMI Method: General Appearance: No Apparent Distress, WD/WN, Mild Distress Eyes: Bilateral Eye Normal Inspection, Bilateral Eye PERRL HEENT: PERRL/EOMI, Normal ENT Inspection, Pharynx Normal Neck: Supple Respiratory: Chest Non Tender, Lungs Clear, Normal Breath Sounds, No Accessory Muscle Use, No Respiratory Distress, Other Cardiovascular: Irregularly Irregular, Tachycardia, Other (deminished heart sounds ) Extremity: Other (+1 ankle edema) Neurologic/Psychiatric: Alert, Oriented x3, No Motor/Sensory Deficits Skin: Normal Color, Warm/Dry, Cool Lymphatic: No Adenopathy Comments DR. ESPINO: General: Alert. No acute distress. Well nourished and appears stated age. Eye: Extraocular movements are intact. Conjunctivae are clear. There are no xanthelasma. HENT: Normocephalic. Atraumatic. Carotid pulsations 2/2 without bruits. Neck: Jugular venous pressure does not appear elevated. No thyromegaly appreciated. Respiratory: Lungs are clear to auscultation. Respirations are non-labored. Breath sounds are equal. Symmetrical chest wall expansion. Cardiovascular: Tachycardia. Regular rhythm. Distant S1/S2. No murmur. No gallop. Point of maximal impulse is not appear displaced. Good pulses equal in all extremities. Trace bilateral pretibial edema. Gastrointestinal: Soft. Normal bowel sounds. Skin: Skin turgor is normal. There is no pallor. Musculoskeletal: No kyphosis or scoliosis appreciated. Neurologic: Alert and oriented to person, place, time. Cranial nerves 3-12 appear grossly intact. The patient has good motor tone strength in the upper and lower extremities bilaterally. Psychiatric: Cooperative. Appropriate mood & affect. ECHOCARDIOGRAM (05/11/2022): 1. Left ventricle: The cavity size is normal. Wall thickness is normal. Systolic function is normal. The estimated ejection fraction is 50-55%. There were no regional wall motion abnormalities identified. The left ventricular diastolic function is indeterminate due to atrial fibrillation. 2. Right ventricle: The cavity size is normal. Systolic function is mildly reduced. TAPSE 1.3 cm. 3. Aortic valve: There is mild aortic valve sclerosis. 4. Inferior vena cava: The vessel is dilated. The respirophasic diameter changes are blunted (less than 50%). These findings are consistent with markedly elevated right atrial pressure (15 mmHg). 5. Pulmonary arteries: The estimated pulmonary artery systolic pressure is 37 mmHg assuming a right atrial pressure of 15 mmHg. 6. Pericardium, extracardiac: There is a moderate sized, circumferential pericardial effusion measuring up to 2.4 cm in maximal dimension. There is borderline echocardiographic criteria for pericardial tamponade. There is a right pleural effusion. A/P-Cardiology Admission Diagnosis (1) Pericardial effusion Assessment & Plan: Etiology unclear. The patient may have had a recent viral illness although he had one negative COVID test. He has been fully vaccinated for COVID as well as boosted with a omicron booster. He does have a slightly elevated white blood cell count but he does not have a fever at this time. There is some borderline signs of pericardial tamponade on his echocardiogram and I also performed a careful blood pressure recording at the bedside and he has approximately a 40 mmHg pulses paradoxus which is consistent with impending tamponade. I have recommended further evaluation of the pericardiocentesis. I have explained the benefits and risks of the procedure to the patient and his and both are in agreement to proceed. The fluid will be sent to the laboratory for evaluation. I will plan to leave the pericardial drain in overnight. (2) Paroxysmal atrial fibrillation Assessment & Plan: This may have been brought on by the pericardial effusion. This resolved with diltiazem infusion. I have stopped the intravenous heparin since he now needs a pericardiocentesis. I may consider starting him on oral anticoagulation once the pericardial drain has been removed. (3) Primary hypertension Assessment & Plan: Resume lisinopril once he is more stable. (4) Mixed hyperlipidemia Assessment & Plan: Resume statin medication. Assessment/Plan Assessment/ Plan Pericardial effusion Consider pericardiocentesis for fluid reduction around the heart. Continue to monitor for signs of tamponade and cardiogenic shock. Paroxysmal Atrial fibrillation Pt converted to sinus rhythm. Continue to monitor rate and rhythm. Continue rate control with Cardizem drip. Consider rhythm control. CHADVASC score 4 will require anticoagulation on discharge. Hypertension hyperlipidemia Continue home medications. Supervisory-Addendum Brief Verification & Attestation Participated in pt care: history, MDM, physical Personally performed: exam, history, MDM, supervision of care Care discussed with: Medical Student Procedures: n/a Results interpretation: Verified all documentation I independently performed my own history and physical and physical examination. I formulated my own impression and plan. I also reviewed the documentation of the medical student. JONAS GARRIDO May 11, 2022 12:13 JARRED ESPINO JR, MD May 11, 2022 13:31
--- NOTE | 2022-05-11 13:17 | History & Physical-Hospitalist ---
GREG FREEMAN 05/11/22 1317: History of Present Illness HPI/Chief Complaint Cristian Sebastian is a 71 yo male admitted to the ICU from the ED on 05/10 with diagnosis of new onset atrial fibrillation. The patient arrived with chief complaint of difficulty sleeping secondary to SOB with accompanying bilateral leg swelling. The patient is recently recovering from a viral illness, lasting until around 1 week ago; his tested positive for COVID with the same sy mptoms. Patient's workup in the ED was significant for atrial fibrillation on EKG, left pleural effusion on CXR, and pericardial effusion on Chest CTA. Patient was started on one dose of digoxin and a diltiazem drip for his afib, and heparin was initiated to treat the pericardial effusion. On evaluation in the ICU, the patient reports he has persistent dyspnea on exertion, and he notes he was unable to sleep overnight because he "did not feel right," does not associate SOB with his difficulty sleeping. He also endorses a cough. The patient denies any fever, chills, nausea, vomiting, diaphoresis, palpitations, chest pain, or abdominal pain. He also denies any personal or family history of afib. He does note a personal history of stroke with unknown etiology in 2012. Source: patient, old records Date Seen 05/11/22 Attending Physician Gemma Benjamin Aprn PCP Admitting Physician: Jinny Oconnell DO Attending Physician: Jinny Oconnell DO Referring Physician Date of Admission May 11, 2022 at 10:00 Home Medications & Allergies Home Medications Reviewed patient Home Medication Reconciliation performed by pharmacy medication reconciliations voip technician and/or nursing. Patients Allergies have been reviewed. Allergies Allergies Coded Allergies No Known Drug Allergies (Unverified06/18/16) Past Csogxdm-Mjjuir-Oypzab Hx Patient Social History Tobacco Use?: No Smoking Status: Never a Smoker Smokeless Tobacco Frequency: Never a User Use of E-Cig and/or Vaping dev: No Use of E-Cig and/or Vaping Zaki: Never a User Substance use?: Yes Substance type: Caffeine Substance frequency: Daily Alcohol Use?: Yes Alcohol type: Wine Alcohol Frequency: Daily Pt feels they are or have been: No Immunizations Up To Date Date of Influenza Vaccine: Feb 27, 2022 Tetanus Booster (TDap): More Than 5 Years Hepatitis A: No Hepatitis B: No Seasonal Allergies Seasonal Allergies: Yes Current Status Advance Directives: No Communicates: Verbally Primary Language: Swazi Preferred Spoken Language: Swazi Is interpretation needed?: No Sensory deficits: Vision impairment Implanted or Applied Medical D: Other Past Medical History Surgeries: Cystectomy Currently Using CPAP: No Currently Using BIPAP: No High Cholesterol, Hypertension Stroke Sexually Transmitted Disease: No HIV/AIDS: No Benign Prostatic Hyperpl Loss of Vision: Denies Hearing Impairment: Denies Blood Disorders: No Review of Systems Constitutional: no symptoms reported; No chills, No diaphoresis, No fever Respiratory: cough, dyspnea on exertion, short of breath Cardiovascular: No chest pain, No palpitations Gastrointestinal: No abdominal pain, No nausea, No vomiting Physical Exam Physical Exam Vital Signs Vital Signs - First Documented 05/10/22 05/10/22 05/10/22 17:21 18:48 20:28 Pulse Ox 95 O2 Flow Rate 2.00 FiO2 21 Capillary Refill : Less Than 3 Seconds Height, Weight, BMI Height: 5'7.00" Weight: 198lbs. 0.0oz. [id number]; 32.35 BMI Method: General Appearance: No Apparent Distress, WD/WN Respiratory: Chest Non Tender, Lungs Clear, Normal Breath Sounds Cardiovascular: Irregularly Irregular, Tachycardia Extremity: No Pedal Edema (leg compression device on) Neurologic/Psychiatric: Alert, Oriented x3, Normal Mood/Affect Skin: Normal Color, Warm/Dry Results Results/Procedures Labs Laboratory Tests 05/10/22 14:06 05/10/22 20:05 05/11/22 05:15 Patient resulted labs reviewed. Imaging: Reviewed Imaging Report Imaging Date of Exam:05/11/22 CHEST 1 VIEW, AP/PA ONLY COMPARISON: 05/10/2022. IMPRESSION: 1. Stable small left pleural effusion with presumed atelectasis. 2. Stable enlargement of the cardiac silhouette due to pericardial effusion seen on prior CT. ECHOCARDIOGRAM (05/11/2022): 1. Left ventricle: The cavity size is normal. Wall thickness is normal. Systolic function is normal. The estimated ejection fraction is 50-55%. There were no regional wall motion abnormalities identified. The left ventricular diastolic function is indeterminate due to atrial fibrillation. 2. Right ventricle: The cavity size is normal. Systolic function is mildly reduced. TAPSE 1.3 cm. 3. Aortic valve: There is mild aortic valve sclerosis. 4. Pericardium, extracardiac: There is a moderate sized, circumferential pericardial effusion measuring up to 2.4 cm in maximal dimension. There is borderline echocardiographic criteria for pericardial tamponade. There is a right pleural effusion. 5. Pulmonary arteries: The estimated pulmonary artery systolic pressure is 27 mmHg assuming a right atrial pressure of 5 mmHg. Assessment/Plan Admission Diagnosis New onset atrial fibrillation Admission Status: Inpatient Order (span 2 midnights) Reason for Inpatient Admission: New onset afib Assessment and Plan 1. New onset atrial fibrillation: Spontaneously converted to sinus rhythm with tachycardia on 05/11. Continue diltiazem drip. Consult with cardiology and echocardiogram obtained. Continue monitoring, repeat ECG. 2. Pericardial effusion: Continue heparin. Consult with cardiology obtained, who recommend considering pericardiocentesis. Repeat CXR. 3. Pleural effusion: Treat patient's underlying atrial fibrillation and pericardial effusion. Continue monitoring. Repeat CXR. 4. Anemia: 05/11: 12.2. Repeat CBC in 24 hours. 5. Hx of stroke of unknown etiology, 2013. 6. Hx of HTN, HLD. JINNY OCONNELL DO 05/12/22 0444: History of Present Illness Source: patient Exam Limitations: no limitations Time Seen by a Provider: 10:00 Past Dqjsxft-Weyzyr-Dellvr Hx Patient Social History Marrital Status: Employed/Student: retired Smoking Status: Never a Smoker Past Medical History High Cholesterol, Hypertension Review of Systems Constitutional: see HPI Respiratory: cough, dyspnea on exertion Physical Exam Physical Exam General Appearance: Anxious, Chronically ill, Mild Distress Eyes: Right Eye Normal Inspection, Right Eye PERRL HEENT: PERRL/EOMI, Normal ENT Inspection, Pharynx Normal, Moist Mucous Membranes Neck: Full Range of Motion, Normal Inspection, Non Tender Respiratory: Chest Non Tender, Lungs Clear, No Accessory Muscle Use, No Respiratory Distress, Decreased Breath Sounds Cardiovascular: No Edema, No Gallop, No JVD, No Murmur, Normal Peripheral Pulses, Irregularly Irregular, Tachycardia Gastrointestinal: Normal Bowel Sounds, No Organomegaly, No Pulsatile Mass, Non Tender, Soft Back: Normal Inspection, No CVA Tenderness, No Vertebral Tenderness Extremity: Normal Capillary Refill, Normal Inspection, Normal Range of Motion, Non Tender, No Calf Tenderness, No Pedal Edema Neurologic/Psychiatric: Alert, Oriented x3, No Motor/Sensory Deficits, Normal Mood/Affect Skin: Normal Color, Warm/Dry Lymphatic: No Adenopathy Assessment/Plan Admission Diagnosis Assessment: New onset atrial fibrillation with rapid ventricular response Pericardial effusion Pleural effusions Recent COVID? Increase shortness of breath for 4 weeks Debility Plan: Cardiology consult Echo Supportive care Cardizem drip Oxygen Admission Status: Inpatient Order (span 2 midnights) Reason for Inpatient Admission: New onset A. fib with pericardial effusion Diagnosis/Problems Diagnosis/Problems (1) Pericardial effusion (2) Atrial fibrillation with RVR Status: Acute (3) New onset a-fib Status: Acute Supervisory-Addendum Brief Verification & Attestation Participated in pt care: history, MDM, physical Personally performed: exam, history, MDM, supervision of care Care discussed with: Medical Student Procedures: n/a Results interpretation: Verified all documentation Verification and Attestation of Medical Student E/M Service A medical student performed and documented this service in my presence. I reviewed and verified all information documented by the medical student and made modifications to such information, when appropriate. I personally performed the physical exam and medical decision making. Jinny Oconnell May 12, 2022,04:44 GREG FREEMAN May 11, 2022 13:17 JINNY OCONNELL DO May 12, 2022 04:44
[2022-05-11] MEDS: HEParin DRIP 25000 UNIT/500ML 500 ML IV SCH (14:09)
[2022-05-11] MEDS ORDERED: IBUPROFEN TABLET 200 MG TAB PO PRN (17:00)
[2022-05-11] MEDS ORDERED: ACETAMINOPHEN 500 MG TAB (TYLENOL) PO PRN (17:00)
--- NOTE | 2022-05-11 17:04 | Pre-Op Note & Conscious Sedat ---
Pre-Operative Progress Note Date H&P Reviewed: May 11, 2022 Time H&P Reviewed: 17:03 History & Physical: H&P Reviewed, Patient Examed, No changes noted Pre-Op Diagnosis: Pericardial effusion with tamponade Conscious Sedation Pre-Proced ASA Score 3 For ASA 3 and 4: Consider anesthesia and medical clearance. Also, for patients with a history of failed moderate sedation consider anesthesia. Airway Lungs Heart ASA score ASA 1: a normal healthy patient ASA 2: a patient with a mild systemic disease (mid diabetes, controlled hypertension, obesity ASA 3: a patient with a severe systemic disease that limits activity (angina, COPD, prior Myocardial infarction) ASA 4: a patient with an incapacitating disease that is a constant threat to life (CHF, renal failure) ASA 5: a moribund patient not expected to survive 24 hrs. (ruptured aneurysm) ASA 6: a declared brain- patient whose organs are being harvested. For emergent operations, add the letter E after the classification Mallampati Classification Grade 3 Sedation Plan Analgesia, Amnesia, Plan communicated to team members, Discussed options with patient/fam, Discussed risks with patient/fam The patient is an appropriate candidate to undergo the planned procedure, sedation, and anesthesia. The patient immediately re-assessed prior to indication. JARRED ESPINO JR, MD May 11, 2022 17:04
[2022-05-11] MEDS ORDERED: fentaNYL INJ 100 MCG/2 ML AMP ONE (17:06)
[2022-05-11] MEDS ORDERED: HEParin (CATH LAB) 1,000 ML IV ONE ×2 (17:07→17:08)
[2022-05-11] MEDS ORDERED: LIDOCAINE 1% INJ 30 ML (XYLOCAINE) VIAL ONE (17:07)
[2022-05-11] MEDS ORDERED: MIDAZOLAM 5 MG/5 ML (VERSED) VIAL ONE (17:07)
[2022-05-11] MEDS ORDERED: NS IV 1000 ML 1,000 ML ONE (17:07)
[2022-05-11] MEDS ORDERED: ACETAMINOPHEN 325 MG TABLET PO PRN (17:30)
[2022-05-11] MEDS ORDERED: NS IV 1000 ML 1,000 ML IV SCH (18:30)
--- NOTE | 2022-05-11 18:33 | Cardiac Procedure Note-[facility] ---
Cardiology Procedures Date of Procedure 05/11/22 PERICARDIOCENTESIS INDICATION: Pericardial effusion with tamponade. PROCEDURE: After informed consent and in the fasting state, the subxiphoid area was prepped and draped in the usual sterile fashion. I then infiltrated the skin and subcutaneous tissue with 1% lidocaine. I then attempted to gain access to the pericardial space from the xiphoid approach with a micropuncture needle but the needle was not long enough to reach the pericardial space. I then converted over to an 18-gauge pericardiocentesis needle and I was able to access the pericardial space. Under fluoroscopic guidance, a J-wire was then inserted into the pericardial space. The wire was removed and a standard 6 Mongolian sheath was inserted over the wire. A short pigtail pericardiocentesis catheter was then inserted over the wire. The opening pericardial pressure was 18 mmHg. The sheath and pigtail catheter were sutured in place. 60 mL of bloody fluid was re moved and sent to the laboratory for analysis. The pericardial drain was then attached to a suction bottle and an additional 500 mL of bloody fluid was removed. The vacuum bottle was left in place connected to the pericardial drain. The closing pericardial pressure was 1 mmHg. A sterile dressing was applied. A post procedure echocardiogram revealed minimal residual pericardial fluid. IMPRESSION: 1. Status post successful pericardiocentesis under fluoroscopic and echocardiographic guidance removing 560 mL of bloody fluid. The pigtail catheter was left in place in the pericardial space attached to a vacuum bottle for ongoing drainage. The sheath and catheter were sutured in place and a sterile dressing was applied. 2. A 60 mL sample of the fluid was sent to the laboratory for analysis. Certain portions of this document may have been dictated utilizing voice recognition technology. Inherent to this technology, typographical and grammatical errors may exist. As much as I am diligent to identify and correct these mistakes, some errors may remain in the document. JARRED ESPINO JR, MD May 11, 2022 18:33
--- NOTE | 2022-05-11 19:01 | Diagnostic Imaging Report ---
INDICATION: Pericardial effusion. COMPARISON is made with prior exam of 05/11/2022 FINDINGS: There is cardiomegaly. There are patchy bibasilar infiltrates. There is a left pleural effusion. There is no pneumothorax. The mediastinum is unremarkable. IMPRESSION: Patchy bibasilar infiltrates and a left pleural effusion. Cardiomegaly. Dictated by: Dictated on workstation # [id number]
[2022-05-11] MEDS ORDERED: lisINopril 10 MG (PRINIVIL) TABLET PO NR (19:30)
[2022-05-11 19:51] LABS: BODY FLUID RBC COUNT 1.232 10^6/uL; BODY FLUID WBC TOTAL COUNT 4.128 10^3/uL
[2022-05-11] MEDS: AtorvaSTATin TABLET 10 MG TABLET PO SCH (20:34)
[2022-05-11] MEDS: ASPIRIN E.C. 81 MG (ECOTRIN) TAB PO SCH (20:34)
[2022-05-11 20:41] LABS: BODY FLUID APPEARENCE MKD BLDY; BODY FLUID COLOR RED; BODY FLUID SOURCE PERICARDIAL; GLUCOSE,BODY FLUID 103 MG/DL; TOTAL PROTEIN,BODY FLUID 4.3 G/DL
[2022-05-11 20:42] LABS: LDH,BODY FLUID 881 U/L
[2022-05-11] MEDS ORDERED: NON-FORMULARY MEDICATION 1 EA EA (Lovastatin 20 MG) PO SCH (21:00)
[2022-05-12] MEDS: dilTIAZem DRIP PRE-MIX 125 ML IV SCH ×2 (03:59→12:11)
[2022-05-12 05:46] LABS: BASOPHILS # (AUTO) 0.1 10^3/uL (0.0-0.1); BASOPHILS % (AUTO) 0 % (0-10); EOSINOPHILS % (AUTO) 0 % (0-10); HEMATOCRIT 39 % (40-54); HEMOGLOBIN 12.9 g/dL (13.3-17.7); LYMPHOCYTES # (AUTO) 3.7 10^3/uL (1.0-4.0); LYMPHOCYTES % (AUTO) 17 % (12-44); MEAN CORPUSCULAR HEMOGLOBIN 30 pg (25-34); MEAN CORPUSCULAR HGB CONC 33 g/dL (32-36); MEAN CORPUSCULAR VOLUME 91 fL (80-99); MEAN PLATELET VOLUME 9.9 fL (9.0-12.2); MONOCYTES # (AUTO) 1.8 10^3/uL (0.0-1.0); MONOCYTES % (AUTO) 9 % (0-12); NEUTROPHILS # (AUTO) 15.6 10^3/uL (1.8-7.8); NEUTROPHILS % (AUTO) 73 % (42-75); PLATELET COUNT 481 10^3/uL (130-400); WHITE BLOOD COUNT 21.4 10^3/uL (4.3-11.0)
[2022-05-12 06:16] LABS: ALBUMIN 3.2 GM/DL (3.2-4.5); BILIRUBIN,TOTAL 0.6 MG/DL (0.1-1.0); CALCIUM 8.6 MG/DL (8.5-10.1); CREATININE SERUM 0.61 MG/DL (0.60-1.30); MAGNESIUM 1.8 MG/DL (1.6-2.4); PHOSPHORUS 3.7 MG/DL (2.3-4.7); POTASSIUM 4.6 MMOL/L (3.6-5.0); TOTAL PROTEIN 5.9 GM/DL (6.4-8.2)
[2022-05-12] MEDS: MAGNESIUM 1 GM/100 ML IVPB 100 ML IV SCH (06:17)
[2022-05-12] MEDS: POTASSIUM CL 10MEQ/50ML IVPB 50 ML IV SCH (06:17)
[2022-05-12] MEDS: KCL 20 MEQ TAB (K-DUR) PO SCH (06:18)
[2022-05-12] MEDS: RT-ALBUTEROL SULF 2.5 MG/3 ML PRE-MIX VIAL INH SCH ×2 (07:36→21:47)
[2022-05-12] MEDS: lisINopril 10 MG (PRINIVIL) TABLET PO SCH (08:21)
[2022-05-12] MEDS: MULTIVIT W/MINERALS TAB (THERAGRAN M) PO SCH (08:21)
[2022-05-12] MEDS: DOCUSATE SODIUM 100 MG (COLACE) CAP PO SCH ×2 (08:21→20:07)
[2022-05-12] MEDS: OMEGA 3 (FISH OIL) 1000 MG CAP PO SCH (08:21)
[2022-05-12] MEDS ORDERED: NON-FORMULARY MEDICATION 1 EA EA (Fish Oil/Dha/Epa (Fish Oil 1,200 mg Fish Oil) 1 EACH) PO SCH (09:00)
--- NOTE | 2022-05-12 09:13 | Cardiology Progress Note ---
Progress Note-Cardiology Events since last exam Date Seen by Provider: May 12, 2022 Time Seen by Provider: 09:12 Events since last exam I am following him due to pericardial effusion. His breathing has improved. He denies chest discomfort, palpitations, syncope, or ankle edema. Certain portions of this document may have been dictated utilizing voice recognition technology. Inherent to this technology, typographical and grammatical errors may exist. As much as I am diligent to identify and correct these mistakes, some errors may remain in the document. Vitals Last set of Vitals Signs Vital Signs 05/10/22 05/12/22 05/12/22 20:28 16:00 16:06 Pulse 96 Resp 28 B/P (MAP) 150/101 (117) Pulse Ox 95 O2 Delivery Nasal Cannula O2 Flow Rate 2.00 FiO2 21 Labs Labs Laboratory Tests 05/12/22 05:25 Exam Vital Signs Vital Signs Date Time Temp Pulse Resp B/P (MAP) Pulse Ox O2 Delivery O2 Flow Rate FiO2 05/12/22 16:06 95 Nasal Cannula 2.00 05/12/22 16:00 96 28 150/101 (117) 05/12/22 12:00 36.7 05/10/22 20:28 21 Physical Exam General: Alert. No acute distress. Eye: No xanthelasma. HENT: Normocephalic. Neck: Jugular venous pressure does not appear elevated. Respiratory: Lungs are clear to auscultation. Respirations are non-labored. Breath sounds are equal. Symmetrical chest wall expansion. Cardiovascular: Normal rate. Regular rhythm. No murmur. No gallop. No edema. Gastrointestinal: Soft. Normal bowel sounds. Skin: Warm. Dry. Neurologic: Alert and oriented to person, place, time. Cranial nerves 3-11 grossly intact. Psychiatric: Cooperative. Appropriate mood & affect. Labs Laboratory Tests Test 05/11/22 18:00 05/12/22 05:25 Range/Units Body Fluid Source PERICARDIAL Body Fluid Color RED Body Fluid Appearance MKD BLDY Body Fluid WBC 4.128 10^3/uL Body Fluid RBC 1.232 10^6/uL Body Fl Polynuclear WBCs (%)(Auto) 52.9 % Body Fluid Mononuclear Cells % Auto 47.1 % Body Fluid Slide Review Yes Body Fluid Glucose 103 MG/DL Body Fluid Total Protein 4.3 G/DL Body Fluid Lactate Dehydrogenase 881 U/L White Blood Count 21.4 H 4.3-11.0 10^3/uL Red Blood Count 4.28 L 4.30-5.52 10^6/uL Hemoglobin 12.9 L 13.3-17.7 g/dL Hematocrit 39 L 40-54 % Mean Corpuscular Volume 91 80-99 fL Mean Corpuscular Hemoglobin 30 25-34 pg Mean Corpuscular Hemoglobin Concent 33 32-36 g/dL Red Cell Distribution Width 13.3 10.0-14.5 % Platelet Count 481 H 130-400 10^3/uL Mean Platelet Volume 9.9 9.0-12.2 fL Immature Granulocyte % (Auto) 1 % Neutrophils (%) (Auto) 73 42-75 % Lymphocytes (%) (Auto) 17 12-44 % Monocytes (%) (Auto) 9 0-12 % Eosinophils (%) (Auto) 0 0-10 % Basophils (%) (Auto) 0 0-10 % Neutrophils # (Auto) 15.6 H 1.8-7.8 10^3/uL Lymphocytes # (Auto) 3.7 1.0-4.0 10^3/uL Monocytes # (Auto) 1.8 H 0.0-1.0 10^3/uL Eosinophils # (Auto) 0.0 0.0-0.3 10^3/uL Basophils # (Auto) 0.1 0.0-0.1 10^3/uL Immature Granulocyte # (Auto) 0.2 H 0.0-0.1 10^3/uL Percent Immature Platelet Fraction 3.8 0.0-7.6 % Sodium Level 130 L 135-145 MMOL/L Potassium Level 4.6 3.6-5.0 MMOL/L Chloride Level 100 98-107 MMOL/L Carbon Dioxide Level 19 L 21-32 MMOL/L Anion Gap 11 5-14 MMOL/L Blood Urea Nitrogen 8 7-18 MG/DL Creatinine 0.61 0.60-1.30 MG/DL Estimat Glomerular Filtration Rate 102 BUN/Creatinine Ratio 13 Glucose Level 107 H 70-105 MG/DL Calcium Level 8.6 8.5-10.1 MG/DL Corrected Calcium 9.2 8.5-10.1 MG/DL Phosphorus Level 3.7 2.3-4.7 MG/DL Magnesium Level 1.8 1.6-2.4 MG/DL Total Bilirubin 0.6 0.1-1.0 MG/DL Aspartate Amino Transf (AST/SGOT) 31 5-34 U/L Alanine Aminotransferase (ALT/SGPT) 58 H 0-55 U/L Alkaline Phosphatase 122 40-136 U/L Total Protein 5.9 L 6.4-8.2 GM/DL Albumin 3.2 3.2-4.5 GM/DL Diagnosis/Problems Diagnosis/Problems (1) Pericardial effusion Assessment & Plan: Etiology unclear. The patient may have had a recent viral illness although he had one negative COVID test. He has been fully vaccinated for COVID as well as boosted with a omicron booster. He does have a slightly elevated white blood cell count but he does not have a fever at this time. He underwent a pericardiocentesis on 05/11 that removed approximately 560 mL of bloody fluid. The pericardial drain was left in overnight and I clamped this this morning. 4 hours later, I unclamp the drain and there was no additional fluid coming from the pericardial space. At that time, I removed the mina cardial drain and a sterile dressing was applied. I will obtain a follow-up echocardiogram in the morning. Laboratory studies are pending on the fluid. (2) Paroxysmal atrial fibrillation Assessment & Plan: This may have been brought on by the pericardial effusion. This resolved with diltiazem infusion but then recurred. I will start him on beta-moses and wean off the intravenous diltiazem. We may need to consider starting oral anticoagulation but since I just remove the pericardial drain today, I would prefer not to start any anticoagulation until tomorrow. (3) Primary hypertension Assessment & Plan: He was hypertensive on 05/11 following the pericardiocentesis and restarted his lisinopril at that time. (4) Mixed hyperlipidemia Assessment & Plan: Continue statin medication. JARRED ESPINO JR, MD May 12, 2022 09:13
--- NOTE | 2022-05-12 09:57 | Progress Note - Hospitalist ---
GREG FREEMAN 05/12/22 0957: Subjective HPI/CC On Admission Date Seen by Provider: May 12, 2022 Time Seen by Provider: 09:20 New-Onset Atrial Fibrillation Subjective/Events-last exam Cristian Sebastian is a 71 yo male who was admitted to the ICU from the ED for new-onset afib. The patient on evaluation today reports he managed to sleep well following his pericardiocentesis yesterday, but struggled to sleep last night between 0000 and 0500; his other complaints are persistent dyspnea on exertion and new-onset upper sternal chest pain post-pericardiocentesis. He notes he has not had a bowel movement since admission to the hospital despite stool softener treatment. The patient denies any SOB at rest, palpitations, abdominal pain, neck pain, nausea, or vomiting. Labs today are significant from WBC 21.4 (increased from 15.3), HB 12.9, PLT 481, Na 130 (decreased from 134). CXR revealed patchy bibasilar infiltrates with left pleural effusion and cardiomegaly. Cardiology recommends continued observation in the ICU with continued pericardiocentesis tube drainage while we await the pericardiocentesis lab results. Review of Systems General: Fatigue HEENT: No Head Aches Pulmonary: Dyspnea, Cough Cardiovascular: Chest Pain; No: Palpitations Gastrointestinal: No: Nausea, Vomiting, Abdominal Pain Musculoskeletal: No: neck pain Objective Exam Vital Signs Vital Signs Date Time Temp Pulse Resp B/P (MAP) Pulse Ox O2 Delivery O2 Flow Rate FiO2 05/12/22 08:00 93 Nasal Cannula 2.00 05/12/22 08:00 36.6 05/12/22 07:00 93 05/12/22 06:00 17 126/101 (109) 05/10/22 20:28 21 Capillary Refill : Less Than 3 Seconds General Appearance: WD/WN, Mild Distress Respiratory: Chest Non Tender, No Accessory Muscle Use, Wheezing (end expiratory wheezing to bilateral lung bases), Other (notable dyspnea with sitting up in bed) Cardiovascular: No Edema, No Murmur, Normal Peripheral Pulses, Irregularly Irregular Extremity: Non Tender, No Pedal Edema Neurologic/Psychiatric: Alert, Oriented x3 Skin: Normal Color, Warm/Dry Results/Procedures Lab Laboratory Tests 05/12/22 05:25 Patient resulted labs reviewed. Imaging: Reviewed Imaging Report Assessment/Plan Assessment and Plan Assess & Plan/Chief Complaint 1. New onset atrial fibrillation: Spontaneously converted to sinus rhythm with tachycardia on 05/11. Continue diltiazem drip. Consult with cardiology and echocardiogram obtained. Continue monitoring, repeat ECG. 2. Pericardial effusion: Heparin discontinued and pericardiocentesis performed by cardiology. Cardiology recommends continued observation and drainage of the pericardiocentesis tube while awaiting pericardiocentesis fluid lab results. 3. Pleural effusion: Treat patient's underlying atrial fibrillation and pericardial effusion. Continue monitoring. Repeat CXR. 4. Anemia: 05/11: 12.2. Repeat CBC in 24 hours. 5. Hx of stroke of unknown etiology, 2013. 6. Hx of HTN, HLD. 7. Leukocytosis: Unknown etiology. Continue monitoring patient and pericardiocentesis fluid results. Recheck CBC in 24 hours. JINNY OCONNELL DO 05/13/22 0422: Objective Exam General Appearance: WD/WN, Anxious, Chronically ill, Mild Distress Respiratory: Decreased Breath Sounds, Wheezing (end expiratory wheezing to bilateral lung bases) Cardiovascular: Irregularly Irregular, Tachycardia Supervisory-Addendum Brief Verification & Attestation Participated in pt care: history, MDM, physical Personally performed: exam, history, MDM, supervision of care Care discussed with: Medical Student Procedures: n/a Results interpretation: Verified all documentation Verification and Attestation of Medical Student E/M Service A medical student performed and documented this service in my presence. I reviewed and verified all information documented by the medical student and made modifications to such information, when appropriate. I personally performed the physical exam and medical decision making. Jinny Oocnnell May 13, 2022,04:21 GREG FREEMAN May 12, 2022 09:57 JINNY OCONNELL DO May 13, 2022 04:22
--- NOTE | 2022-05-12 10:20 | Tele-ICU Progress Note ---
Subjective Date Seen by a Provider: May 12, 2022 Time Seen by a Provider: 10:18 Subjective/Events-last exam (Tele-ICU Physician , Progress Note ) Service provided via interactive audio and video telecommunications E-CARE system to a patient admitted to ICU bed in [facility]. Available chart/ vitals / labs / Images reviewed Video assessment done using teleICU camera, rest of exam as per RN Discussed with RN Events overnight : Afebrile hemodynamically stable Respiratory - 2l I/O = pos Drips: Pressors- no Consultants: [facility] Hospital course: (05/10) 71yr old male admitted with Afib/rvr, pericardial effusion, and pleural effusion (05/11) s/p pericardiocentesis with 560ml of bloody fluid drained Patient is seen today due to persistent hypoxia A/P Acute resp insufficiency , hypoxia - 2 L - CXR and CTA show no pulm emb -NEG COVID and flu serology - keep neg fluid status pleural effusions L > R -no indications for TX thoracentesis now , decubs ordered today - pending Pericardial effusion with impending tamponade - Etiology unclear, labs pending (05/11) s/p pericardiocentesis with 560ml of bloody fluid drained. catheter in place - plans as per cards Afib with RVR, pericardial effusion ( post viral CM ? - IMTERMITTENT SINUS TODAY after drained effusion - cards follow - ECHO RF 55% -Cardizem gtt - heparin gtt OFF Recent viral syndrome - 4 weeks , serology neg now . Leukocytosis - follow off ABX Lines : periph , (Central Line Necessity Reviewed) Rosas: void OG: Nutrition: po Analgesia: Anxiety/ delirium VTE Prophylaxis: hep gtt off , contraindic with bloody effusion , SCD Stress Ulcer Prophylaxis: na Plans in collaboration with bedside consultants and IM MDs. Discussed with RN to reach out if any questions or concerns A total of 25 minutes of critical care time was devoted to this patient today, required to treat and/or prevent further deterioration of critical care condition ( as above ) . Sepsis Event Evaluation Height, Weight, BMI Height: 5'7.00" Weight: 198lbs. 0.0oz. 89.826353rz; 32.04 BMI Method: Exam Exam Patient acknowledged, consented, and participated in this virtual visit which was conducted using real time audio/video Vital Signs Date Time Temp Pulse Resp B/P (MAP) Pulse Ox O2 Delivery O2 Flow Rate FiO2 05/12/22 09:00 95 12 106/60 (75) 95 High Flow N/C 2.00 05/12/22 08:00 93 Nasal Cannula 2.00 05/12/22 08:00 131 10 147/75 (99) 95 High Flow N/C 2.00 05/12/22 08:00 36.6 05/12/22 07:36 93 Nasal Cannula 2.00 05/12/22 07:00 93 10 127/80 (96) 94 High Flow N/C 2.00 05/12/22 07:00 93 05/12/22 06:00 93 17 126/101 (109) 94 High Flow N/C 2.00 05/12/22 05:15 99 24 134/98 (110) 94 High Flow N/C 2.00 05/12/22 04:01 36.4 High Flow N/C 2.00 05/12/22 04:00 96 12 109/87 (94) 93 High Flow N/C 2.00 05/12/22 04:00 93 Nasal Cannula 2.00 05/12/22 03:59 102 141/82 05/12/22 03:00 102 11 136/84 (101) 93 High Flow N/C 2.00 05/12/22 02:00 102 16 141/82 (101) 94 High Flow N/C 2.00 05/12/22 01:30 98 125/74 (91) 94 High Flow N/C 2.00 05/12/22 01:00 103 05/12/22 00:00 101 14 117/83 (94) 92 High Flow N/C 2.00 05/11/22 23:58 93 Nasal Cannula 2.00 05/11/22 23:17 105 05/11/22 23:15 156 17 128/79 (95) 93 High Flow N/C 2.00 05/11/22 23:12 144 05/11/22 22:44 36.6 High Flow N/C 2.00 05/11/22 22:30 102 8 145/76 (99) 94 High Flow N/C 2.00 05/11/22 21:45 104 10 136/84 (101) 94 High Flow N/C 2.00 05/11/22 21:00 93 Nasal Cannula 2.00 05/11/22 20:30 104 144/101 05/11/22 20:15 107 19 163/85 (111) 91 High Flow N/C 2.00 05/11/22 20:00 94 Nasal Cannula 2.00 05/11/22 20:00 36.8 05/11/22 19:15 101 22 152/99 (116) 92 High Flow N/C 2.00 05/11/22 19:00 106 05/11/22 19:00 High Flow N/C 2.00 05/11/22 18:00 104 26 94 High Flow N/C 2.00 05/11/22 17:00 105 24 144/101 (115) 95 High Flow N/C 2.00 05/11/22 16:00 105 21 95 High Flow N/C 2.00 05/11/22 16:00 36.2 05/11/22 15:00 101 18 177/105 (129) 94 High Flow N/C 2.00 05/11/22 14:00 99 21 155/93 (113) 93 High Flow N/C 2.00 05/11/22 13:00 96 17 160/83 (108) 94 High Flow N/C 2.00 05/11/22 13:00 97 05/11/22 12:00 95 Nasal Cannula 2.00 05/11/22 12:00 101 19 147/92 (110) 94 High Flow N/C 2.00 05/11/22 11:37 36.7 05/11/22 11:00 98 21 138/115 (123) 94 High Flow N/C 2.00 05/11/22 10:44 36.6 I & O 05/12/22 07:00 Intake Total 2264 ml Output Total 1800 ml Balance 464 ml Height & Weight Height: 5'7.00" Weight: 198lbs. 0.0oz. 89.238831zg; 32.04 BMI Method: General Appearance: WD/WN, Mild Distress HEENT: PERRL/EOMI, Normal ENT Inspection, Pharynx Normal, Moist Mucous Membranes Neck: Full Range of Motion, Normal Inspection, Non Tender Respiratory: Chest Non Tender, No Accessory Muscle Use, Wheezing (end expiratory wheezing to bilateral lung bases), Other (notable dyspnea with sitting up in bed) Cardiovascular: No Edema, No Murmur, Normal Peripheral Pulses, Irregularly Irregular Capillary Refill: Less Than 3 Seconds Gastrointestinal: normal bowel sounds, non tender, soft, distended Extremity: Non Tender, No Pedal Edema Neurologic/Psychiatric: Alert, Oriented x3 Skin: Normal Color, Warm/Dry Lymphatic: No Adenopathy Results Lab Laboratory Tests 05/10/22 14:06 05/10/22 20:05 05/11/22 05:15 05/12/22 05:25 Assessment/Plan Assessment/Plan 1 ROSETTE CAAL MD May 12, 2022 10:20
--- NOTE | 2022-05-12 10:21 | Diagnostic Imaging Report ---
EXAMINATION: Chest 1 view HISTORY: Pleural effusion COMPARISON: 05/11/2022 FINDINGS: Stable enlargement of the cardiac silhouette. Stable small left pleural effusion. Stable mild interstitial opacities at the lung bases. Chronic rib deformities. The osseous structures are otherwise intact. IMPRESSION: 1. Stable left pleural effusion and bibasilar interstitial opacities. Dictated by: Dictated on workstation # [id number]
--- NOTE | 2022-05-12 10:23 | Diagnostic Imaging Report ---
EXAM: Decubitus chest radiograph. EXAM DATE: 05/12/2022 COMPARISON: 05/12/2020 HISTORY: Left-sided pleural effusion. TECHNIQUE: Single lateral decubitus view of the chest. FINDINGS: Layering pleural fluid is seen along the dependent left hemithorax. Stable enlargement of the cardiac silhouette. Stable interstitial opacities at the lung bases. No pneumothorax. IMPRESSION: Layering pleural fluid within the left hemithorax compatible with left-sided pleural effusion. Dictated by: Dictated on workstation # [id number]
--- NOTE | 2022-05-12 10:24 | Consultation - Surgery ---
KRISTAL WATERS 05/12/22 1024: History of Present Illness History of Present Illness Patient Consulted On(nan/time) 05/12/22 10:15 Date Seen by Provider: May 12, 2022 Time Seen by Provider: 09:45 History of Present Illness Cristian Sebastian is a 71 year old male with a past medical history of HTN, hyperlipidemia, and stroke presenting with severe SOB. Pt was admitted to ICU from ED 05/10 due to difficulty sleeping secondary to SOB with accompanying b/l leg swelling. Pt was recovering from recent viral illness that was potentially COVID. CXR from 05/11/22 shows patchy bibasilar infiltrates and a left pleural effusion. CTA Chest: no pulmonary embolism is identified however there is large amount of pericardial fluid with small amount of right and moderate amount of left pleural fluid present. Surgery is being consulted for left pleural effusion. Pt currently has severe SOB on exertion and had his discuss with me his history of present illness. SOB, worse in the morning, has been constant and is currently on 2L oxygen around 94% saturation. When pt is taken off oxygen, O2 saturation runs about 84%. Pt's stated he has had b/l ankle swelling, but has now resolved. Last night around 6-7pm pt was given morphine and became disoriented. Wasn't able to sleep until morphine wore off. Pt denies abdominal pain, chest pain, numbness/tingliness, headache, fever, and chills. Allergies and Home Medications Allergies Coded Allergies: No Known Drug Allergies (Unverified , 06/18/16) Patient Home Medication List Acetaminophen (Acetaminophen) 500 Mg Tablet, 500-1,000 MG PO Q8H PRN for PAIN- MILD (1-4), (Reported) Entered as Reported by: WESLEY CAVANAUGH on 05/11/221133 Last Action: Continued Aspirin (Aspirin EC) 81 Mg Tablet.dr, 81 MG PO HS, (Reported) Entered as Reported by: WESLEY CAVANAUGH on 05/11/221133 Last Action: Continued Fish Oil/Dha/Epa (Fish Oil 1,200 mg Fish Oil) 1,200 Mg-144 Mg-216 Mg Capsule, 1 EACH PO DAILY, (Reported) Entered as Reported by: WESLEY CAVANAUGH on 05/11/221133 Last Action: Converted Ibuprofen (Ibuprofen) 200 Mg Tablet, 400-600 MG PO Q8H PRN for PAIN-MILD (1-4), (Reported) Entered as Reported by: MAN HAJI on 03/15/19 08 Last Action: Continued Lisinopril (Lisinopril) 10 Mg Tablet, 10 MG PO DAILY, (Reported) Entered as Reported by: SANDEE YEE on 06/18/161328 Last Action: Continued Lovastatin (Lovastatin) 20 Mg Tablet, 20 MG PO HS, (Reported) Entered as Reported by: SANDEE YEE on 06/18/161328 Last Action: Converted Methylsulfonylmethane (Msm) 1,000 Mg Tablet, 1,000 MG PO DAILY, (Reported) Entered as Reported by: WESLEY CAVANAUGH on 05/11/221133 Last Action: Reviewed Multivitamin (Multi-Vitamin Daily) 1 Each Tablet, 1 EACH PO DAILY, (Reported) Entered as Reported by: SANDEE YEE on 06/18/161328 Last Action: Continued Saw Enochs Fruit/Zinc Picoli (Saw Enochs 450 mg Capsule) 450 Mg-15 Mg Capsule, 3 EACH PO DAILY, (Reported) Entered as Reported by: WESLEY CAVANAUGH on 05/11/221133 Last Action: Reviewed Discontinued Medications Chondroitin Sulfate A Sodium (Optiflex-C) 400 Mg Capsule, 400 MG PO DAILY, (Reported) Discontinued Reason: Prescription changed Entered as Reported by: MAN HAJI on 03/15/19 08 Last Action: Reviewed Gabapentin (Gabapentin) 100 Mg Capsule, 100 MG PO DAILY, (Reported) Discontinued Reason: No Longer Taking Entered as Reported by: SANDEE YEE on 06/18/161328 Last Action: Discontinued [place] 3 Polyunsat Fatty Acids (Fish Oil 1,000 mg Capsule) 1,000 Mg Cap, 1,000 MG PO DAILY, (Reported) Discontinued Reason: Prescription changed Entered as Reported by: SANDEE YEE on 03/14/19928 Last Action: Reviewed Saw Enochs Xtr/Zinc Picolin (Saw Enochs Ext 160 mg Cap) 1 Each Capsule, 1 EACH PO DAILY, (Reported) Discontinued Reason: Prescription changed Entered as Reported by: SANDEE YEE on 03/14/19928 Last Action: Reviewed Past Vbwwcsk-Txgxkk-Aafuxd Hx Patient Social History Smoking Status: Never a Smoker Former Smoker, Quit: Jun 18, 2015 Type Used: Cigarettes Recent Hopitalizations: No Alcohol Use?: Yes Substance type: Caffeine Have you traveled recently?: No Immunizations Up To Date Tetanus Booster (TDap): Unknown Date of Influenza Vaccine: Feb 27, 2022 Seasonal Allergies Seasonal Allergies: Yes Surgeries History of Surgeries: No Surgeries: Cystectomy Respiratory History of Respiratory Disorde: No Cardiovascular History of Cardiac Disorders: Yes Cardiac Disorders: High Cholesterol, Hypertension Neurological History of Neurological Disord: Yes Neurological Disorders: Stroke Reproductive System Hx Reproductive Disorders: No Sexually Transmitted Disease: No HIV/AIDS: No Genitourinary History of Genitourinary Disor: Yes Genitourinary Disorders: Benign Prostatic Hyperpl Gastrointestinal History of Gastrointestinal Di: No Musculoskeletal History of Musculoskeletal Dis: No Endocrine History of Endocrine Disorders: No HEENT History of HEENT Disorders: No Loss of Vision: Denies Hearing Impairment: Denies Cancer History of Cancer: No Psychosocial History of Psychiatric Problem: No Integumentary History of Skin or Integumenta: Yes (cyst on back) Blood Transfusions History of Blood Disorders: No Review of Systems-General Constitutional: No chills, No fever Respiratory: cough, dyspnea on exertion, short of breath Cardiovascular: No chest pain; edema Gastrointestinal: No abdominal pain; constipation; No diarrhea, No loss of appetite Genitourinary: No dysuria; hematuria Skin: No change in color, No change in hair/nails Psychiatric/Neurological: Denies Headache, Denies Numbness, Denies Paresthesia, Denies Tingling Physical Exam-General Problems Physical Exam Vital Signs Vital Signs - First Documented 05/10/22 05/10/22 05/10/22 17:21 18:48 20:28 Pulse Ox 95 O2 Flow Rate 2.00 FiO2 21 Capillary Refill : Less Than 3 Seconds General Appearance: no apparent distress HEENT: PERRL/EOMI Neck: non-tender, other (Neck Selling present b/l ) Respiratory: chest non-tender, lungs clear, decreased breath sounds Cardiovascular: normal peripheral pulses, regular rate, rhythm (Pt's heart was ), no gallop, no murmur Peripheral Pulses: 2+ Radial Pulses (R), 2+ Radial Pulses (L) Gastrointestinal: normal bowel sounds, non tender, soft Rectal: deferred Extremities: non-tender, swelling (Slight swelling ) Neurologic/Psychiatric: normal mood/affect, oriented x 3 Skin: normal color, warm/dry Data Review Labs Laboratory Tests 05/11/22 10:30: Activated Partial Thromboplast Time > 200*H 05/11/22 11:18: Blood Gas Puncture Site L RAD, Blood Gas Patient Temperature 36.3, Arterial B lood pH 7.45H, Arterial Blood Partial Pressure CO2 40, Arterial Blood Partial Pressure O2 70L, Arterial Blood HCO3 27, Arterial Blood Total CO2 28.6, Arterial Blood Oxygen Saturation 96, Arterial Blood Base Excess 3.4H, Jr Test YES-POS, Blood Gas Ventilator Setting NO, Blood Gas Inspired Oxygen 2 L 05/11/22 16:35: Activated Partial Thromboplast Time 47H 05/11/22 18:00: Body Fluid Source PERICARDIAL, Body Fluid Color RED, Body Fluid Appearance MKD BLDY, Body Fluid WBC 4.128, Body Fluid RBC 1.232, Body Fl Polynuclear WBCs (%)(Auto) 52.9, Body Fluid Mononuclear Cells % Auto 47.1, Body Fluid Slide Review Yes, Body Fluid Glucose 103, Body Fluid Total Protein 4.3, Body Fluid Lactate Dehydrogenase 881 05/12/22 05:25: White Blood Count 21.4H, Red Blood Count 4.28L, Hemoglobin 12.9L, Hematocrit 39L , Mean Corpuscular Volume 91, Mean Corpuscular Hemoglobin 30, Mean Corpuscular Hemoglobin Concent 33, Red Cell Distribution Width 13.3, Platelet Count 481H, Mean Platelet Volume 9.9, Immature Granulocyte % (Auto) 1, Neutrophils (%) (Auto) 73, Lymphocytes (%) (Auto) 17, Monocytes (%) (Auto) 9, Eosinophils (%) (Auto) 0, Basophils (%) (Auto) 0, Neutrophils # (Auto) 15.6H, Lymphocytes # (Auto) 3.7, Monocytes # (Auto) 1.8H, Eosinophils # (Auto) 0.0, Basophils # (Auto) 0.1, Immature Granulocyte # (Auto) 0.2H, Percent Immature Platelet Fraction 3.8, Sodium Level 130L, Potassium Level 4.6, Chloride Level 100, Carbon Dioxide Level 19L, Anion Gap 11, Blood Urea Nitrogen 8, Creatinine 0.61, Estimat Glomerular Filtration Rate 102, BUN/Creatinine Ratio 13, Glucose Level 107H, Calcium Level 8.6, Corrected Calcium 9.2, Phosphorus Level 3.7, Magnesium Level 1.8, Total Bilirubin 0.6, Aspartate Amino Transf (AST/SGOT) 31, Alanine Am inotransferase (ALT/SGPT) 58H, Alkaline Phosphatase 122, Total Protein 5.9L, Albumin 3.2 Microbiology 05/10/22 MRSA Screen - Final, Complete MRSA not isolated Radiology Date of Exam:05/10/22 CHEST 1 VIEW AP/PA ONLY Impression: 1. Cardiomegaly with possible small left pleural effusion and left basilar atelectasis or consolidation. Date of Exam:05/10/22 CT ANGIO CHEST W IMPRESSION: No pulmonary embolism is identified however there is large amount of pericardial fluid with small amount of right and moderate amount of left pleural fluid present. CHEST 1 VIEW, AP/PA ONLY COMPARISON: 05/10/2022. IMPRESSION: 1. Stable small left pleural effusion with presumed atelectasis. 2. Stable enlargement of the cardiac silhouette due to pericardial effusion seen on prior CT CHEST 1 VIEW, AP/PA ONLY COMPARISON is made with prior exam of 05/11/2022 IMPRESSION: Patchy bibasilar infiltrates and a left pleural effusion. Cardiomegaly. Assessment/Plan Assessment/Plan Assessment/Plan Assessment: 1) Left Pleural Effusion 2) Pericardial Effusion 3) Gross Hematuria Plan: 1) Ultrasound-guided thoracentesis to relieve pleural effusion 2) Continue care with Cardiology 3) Consult with Dr. Mullins about plan of action for Hematuria. ELMER PURCELL DO 05/13/22 2009: History of Present Illness History of Present Illness History of Present Illness 71 year old male who has been having increasing shortness of breath. Activity makes breathing worse. Laying still he still has issues but less. Had to have pericardiocentesis due to large pericardial effusion. He states the drain was removed earlier today. He is wanting to feel better. Currently denies n/v fever sweats chills shortness of breath or chest pain. Chest x ray showing patchy infiltrates and left pleural effusion. Allergies and Home Medications Allergies Coded Allergies: No Known Drug Allergies (Unverified , 06/18/16) Patient Home Medication List Home Medication List Reviewed: Yes Acetaminophen (Acetaminophen) 500 Mg Tablet, 500-1,000 MG PO Q8H PRN for PAIN- MILD (1-4), (Reported) Entered as Reported by: WESLEY CAVANAUGH on 05/11/221133 Last Action: Continued Aspirin (Aspirin EC) 81 Mg Tablet.dr, 81 MG PO HS, (Reported) Entered as Reported by: WESLEY CAVANAUGH on 05/11/221133 Last Action: Continued Fish Oil/Dha/Epa (Fish Oil 1,200 mg Fish Oil) 1,200 Mg-144 Mg-216 Mg Capsule, 1 EACH PO DAILY, (Reported) Entered as Reported by: WESLEY CAVANAUGH on 05/11/221133 Last Action: Converted Ibuprofen (Ibuprofen) 200 Mg Tablet, 400-600 MG PO Q8H PRN for PAIN-MILD (1-4), (Reported) Entered as Reported by: MAN HAJI on 03/15/19 08 Last Action: Continued Lisinopril (Lisinopril) 10 Mg Tablet, 10 MG PO DAILY, (Reported) Entered as Reported by: SANDEE YEE on 06/18/161328 Last Action: Continued Lovastatin (Lovastatin) 20 Mg Tablet, 20 MG PO HS, (Reported) Entered as Reported by: SANDEE YEE on 06/18/161328 Last Action: Converted Methylsulfonylmethane (Msm) 1,000 Mg Tablet, 1,000 MG PO DAILY, (Reported) Entered as Reported by: WESLEY CAVANAUGH on 05/11/221133 Last Action: Reviewed Multivitamin (Multi-Vitamin Daily) 1 Each Tablet, 1 EACH PO DAILY, (Reported) Entered as Reported by: SANDEE YEE on 06/18/161328 Last Action: Continued Saw Enochs Fruit/Zinc Picoli (Saw Enochs 450 mg Capsule) 450 Mg-15 Mg Capsule, 3 EACH PO DAILY, (Reported) Entered as Reported by: WESLEY CAVANAUGH on 05/11/221133 Last Action: Reviewed Discontinued Medications Chondroitin Sulfate A Sodium (Optiflex-C) 400 Mg Capsule, 400 MG PO DAILY, (Reported) Discontinued Reason: Prescription changed Entered as Reported by: MAN HAJI on 03/15/19 0800 Last Action: Reviewed Gabapentin (Gabapentin) 100 Mg Capsule, 100 MG PO DAILY, (Reported) Discontinued Reason: No Longer Taking Entered as Reported by: SANDEE YEE on 1/20/17 1329 Last Action: Discontinued [place] 3 Polyunsat Fatty Acids (Fish Oil 1,000 mg Capsule) 1,000 Mg Cap, 1,000 MG PO DAILY, (Reported) Discontinued Reason: Prescription changed Entered as Reported by: SANDEE YEE on 03/14/19928 Last Action: Reviewed Saw Enochs Xtr/Zinc Picolin (Saw Enochs Ext 160 mg Cap) 1 Each Capsule, 1 EACH PO DAILY, (Reported) Discontinued Reason: Prescription changed Entered as Reported by: SANDEE YEE on 03/14/19928 Last Action: Reviewed Past Vrttvps-Ihgglm-Gljufn Hx Reviewed Nursing Assessment Reviewed/Agree w Nursing PMH: Yes Family Medical History Significant Family History: No Pertinent Family Hx Review of Systems-General Constitutional: No chills, No fever EENTM: No blurred vision Respiratory: cough, dyspnea on exertion, short of breath Cardiovascular: No chest pain; edema Gastrointestinal: No abdominal pain; constipation; No diarrhea, No nausea, No vomiting Genitourinary: No decreased output, No dysuria Musculoskeletal: No gout, No joint pain Skin: No change in color, No change in hair/nails Psychiatric/Neurological: Denies Anxiety, Denies Depressed, Denies Emotional Problems All Other Systems Reviewed Negative Unless Noted: Yes (Negative excepted noted.) Physical Exam-General Problems Physical Exam General Appearance: WD/WN, no apparent distress HEENT: PERRL/EOMI, normal ENT inspection Neck: non-tender, supple, other (Neck Swelling present b/l ) Respiratory: chest non-tender, other (minimally labored breathing when ta lking.) Cardiovascular: regular rate, rhythm, no gallop Gastrointestinal: non tender, soft Rectal: deferred Back: normal inspection, no CVA tenderness Extremities: non-tender, swelling (Slight swelling ) Neurologic/Psychiatric: alert, normal mood/affect, oriented x 3 Skin: normal color, warm/dry Lymphatic: no adenopathy Assessment/Plan Assessment/Plan Assessment/Plan left pleural effusion pericardial effusion shortness of breath NSTEMI Patient with left pleural effusion patient not wanting this drained yet. We'll see how his symptoms progress. May need thoracentesis. Medical management. Will follow. Supervisory-Addendum Brief Verification & Attestation Participated in pt care: history, MDM, physical Personally performed: exam, history, MDM, supervision of care Care discussed with: Medical Student Procedures: n/a Results interpretation: Verified all documentation Verification and Attestation of Medical Student E/M Service A medical student performed and documented this service in my presence. I reviewed and verified all information documented by the medical student and made modifications to such information, when appropriate. I personally performed the physical exam and medical decision making. Elmer Purcell, May 12, 2022,19:34 KRISTAL WATERS May 12, 2022 10:24 ELMER PURCELL DO May 13, 2022 20:09
[2022-05-12] MEDS ORDERED: meTOproloL SUCCINATE 50 MG (TOPROL XL) TAB PO NR (16:30)
[2022-05-12] MEDS: ASPIRIN E.C. 81 MG (ECOTRIN) TAB PO SCH (20:07)
[2022-05-12] MEDS: AtorvaSTATin TABLET 10 MG TABLET PO SCH (20:07)
[2022-05-13] VITALS (10 sets, daily range): BP systolic 124–181; BP diastolic 66–91
[2022-05-13 05:01] LABS: BASOPHILS # (AUTO) 0.1 10^3/uL (0.0-0.1); BASOPHILS % (AUTO) 0 % (0-10); EOSINOPHILS # (AUTO) 0.1 10^3/uL (0.0-0.3); EOSINOPHILS % (AUTO) 1 % (0-10); HEMATOCRIT 39 % (40-54); HEMOGLOBIN 12.6 g/dL (13.3-17.7); LYMPHOCYTES # (AUTO) 3.3 10^3/uL (1.0-4.0); LYMPHOCYTES % (AUTO) 19 % (12-44); MEAN CORPUSCULAR HEMOGLOBIN 30 pg (25-34); MEAN CORPUSCULAR HGB CONC 33 g/dL (32-36); MEAN CORPUSCULAR VOLUME 91 fL (80-99); MEAN PLATELET VOLUME 9.4 fL (9.0-12.2); MONOCYTES # (AUTO) 1.5 10^3/uL (0.0-1.0); MONOCYTES % (AUTO) 9 % (0-12); NEUTROPHILS # (AUTO) 12.5 10^3/uL (1.8-7.8); NEUTROPHILS % (AUTO) 71 % (42-75); PLATELET COUNT 440 10^3/uL (130-400); WHITE BLOOD COUNT 17.5 10^3/uL (4.3-11.0)
[2022-05-13 05:11] LABS: ALBUMIN 3.2 GM/DL (3.2-4.5)
[2022-05-13 05:12] LABS: POTASSIUM 4.4 MMOL/L (3.6-5.0)
[2022-05-13 05:13] LABS: CALCIUM 8.8 MG/DL (8.5-10.1)
[2022-05-13 05:14] LABS: TOTAL PROTEIN 5.9 GM/DL (6.4-8.2)
[2022-05-13 05:16] LABS: BILIRUBIN,TOTAL 0.5 MG/DL (0.1-1.0)
[2022-05-13 05:17] LABS: PHOSPHORUS 3.4 MG/DL (2.3-4.7)
[2022-05-13] MEDS: KCL 20 MEQ TAB (K-DUR) PO SCH (05:17)
[2022-05-13] MEDS: POTASSIUM CL 10MEQ/50ML IVPB 50 ML IV SCH (05:17)
[2022-05-13 05:18] LABS: CREATININE SERUM 0.63 MG/DL (0.60-1.30)
[2022-05-13 05:21] LABS: MAGNESIUM 1.9 MG/DL (1.6-2.4)
[2022-05-13] MEDS: MAGNESIUM 1 GM/100 ML IVPB 100 ML IV SCH (05:26)
[2022-05-13] MEDS: RT-ALBUTEROL SULF 2.5 MG/3 ML PRE-MIX VIAL INH SCH ×2 (08:10→21:00)
--- NOTE | 2022-05-13 08:26 | Progress Note - Surgery ---
KRISTAL WATERS 05/13/22 0826: Subjective Date Seen by a Provider: May 13, 2022 Subjective/Events-last exam Cristian Sebastian is a 71yo male admitted for atrial fibrillation, pericardial effusion, and left pleural effusion. Surgery was consulted for left pleural effusion, and we ordered CXR for 9:45 05/13/22 to monitor the status of pleural effusion. Cardiology removed drain yesterday after removing pericardial effusion. Today pt is doing well and was sitting up in chair during interview. Pt states that he is states he is not currently in any pain but per nurse, he has had some upper back discomfort. States SOB is the same as yesterday and doesn't has any new swelling other than persistent edema in neck b/l. Pt notes of worsening congestion. He thinks it's due to laying in bed the past couple of days. No gross hematuria in [place]. This is day three w/o bowel movement. Pt denies chest pain, palpitations, numbness and tingling, fever, chills, nausea, and vomiting. Objective Exam Vital Signs Date Time Temp Pulse Resp B/P (MAP) Pulse Ox O2 Delivery O2 Flow Rate FiO2 05/13/22 08:10 92 Nasal Cannula 2.00 05/13/22 08:00 96 Nasal Cannula 2.00 05/13/22 07:59 36.8 05/13/22 07:09 89 05/13/22 06:00 95 17 146/99 (115) 96 High Flow N/C 2.00 05/13/22 05:00 93 17 156/98 (117) 96 High Flow N/C 2.00 05/13/22 04:41 96 Nasal Cannula 2.00 05/13/22 04:00 88 12 144/81 (102) 95 High Flow N/C 2.00 05/13/22 03:09 36.7 High Flow N/C 2.00 05/13/22 03:00 90 12 126/76 (93) 96 High Flow N/C 2.00 05/13/22 02:00 89 12 158/83 (108) 95 High Flow N/C 2.00 05/13/22 01:00 91 13 131/78 (95) 94 High Flow N/C 2.00 05/13/22 01:00 90 05/13/22 00:30 95 Nasal Cannula 2.00 05/13/22 00:00 95 16 137/86 (103) 93 High Flow N/C 2.00 05/12/22 23:00 80 17 137/83 (101) 93 High Flow N/C 2.00 05/12/22 22:39 36.2 05/12/22 22:00 95 24 144/82 (102) 94 High Flow N/C 2.00 05/12/22 21:49 92 Nasal Cannula 2.00 05/12/22 21:00 91 33 133/88 (103) 96 High Flow N/C 2.00 05/12/22 20:33 94 Nasal Cannula 2.00 05/12/22 20:00 94 16 135/82 (99) 96 High Flow N/C 2.00 05/12/22 19:00 92 22 153/92 (112) 96 High Flow N/C 2.00 05/12/22 19:00 37.2 High Flow N/C 2.00 05/12/22 19:00 90 05/12/22 18:00 87 12 135/71 (92) 95 High Flow N/C 2.00 05/12/22 17:00 94 20 121/78 (92) 89 High Flow N/C 2.00 05/12/22 16:32 36.7 05/12/22 16:06 95 Nasal Cannula 2.00 05/12/22 16:00 96 28 150/101 (117) 93 High Flow N/C 2.00 05/12/22 15:00 96 10 150/101 (117) 92 High Flow N/C 2.00 05/12/22 14:00 94 14 117/68 (84) 93 High Flow N/C 2.00 05/12/22 13:00 98 10 136/67 (90) 94 High Flow N/C 2.00 05/12/22 13:00 95 05/12/22 12:11 101 131/75 05/12/22 12:00 36.7 05/12/22 12:00 95 14 107/72 (84) 94 High Flow N/C 2.00 05/12/22 12:00 95 Nasal Cannula 2.00 05/12/22 11:00 101 12 131/75 (93) 94 High Flow N/C 2.00 05/12/22 10:00 77 27 149/84 (105) 92 High Flow N/C 2.00 05/12/22 09:00 95 12 106/60 (75) 95 High Flow N/C 2.00 I & O 05/13/22 07:00 Intake Total 2800 ml Output Total 1850 ml Balance 950 ml Capillary Refill : Less Than 3 Seconds General Appearance: WD/WN, Anxious, Chronically ill, Mild Distress HEENT: PERRL/EOMI, Normal ENT Inspection, Pharynx Normal, Moist Mucous Membranes Neck: Full Range of Motion, Normal Inspection, Non Tender Respiratory: Decreased Breath Sounds, Wheezing (end expiratory wheezing to bilateral lung bases) Cardiovascular: Irregularly Irregular, Tachycardia Peripheral Pulses: 2+ Radial Pulses (R), 2+ Radial Pulses (L) Gastrointestinal: normal bowel sounds, non tender, soft Extremity: Non Tender, No Pedal Edema Neurologic/Psychiatric: Alert, Oriented x3 Skin: Normal Color, Warm/Dry Lymphatic: No Adenopathy Results Lab Laboratory Tests 05/13/22 04:35: White Blood Count 17.5H, Red Blood Count 4.26L, Hemoglobin 12.6L, Hematocrit 39L , Mean Corpuscular Volume 91, Mean Corpuscular Hemoglobin 30, Mean Corpuscular Hemoglobin Concent 33, Red Cell Distribution Width 13.2, Platelet Count 440H, Mean Platelet Volume 9.4, Immature Granulocyte % (Auto) 1, Neutrophils (%) (Auto) 71, Lymphocytes (%) (Auto) 19, Monocytes (%) (Auto) 9, Eosinophils (%) (Auto) 1, Basophils (%) (Auto) 0, Neutrophils # (Auto) 12.5H, Lymphocytes # (Auto) 3.3, Monocytes # (Auto) 1.5H, Eosinophils # (Auto) 0.1, Basophils # (Auto) 0.1, Immature Granulocyte # (Auto) 0.1, Sodium Level 133L, Potassium Level 4.4, Chloride Level 98, Carbon Dioxide Level 24, Anion Gap 11, Blood Urea Nitrogen 7, Creatinine 0.63, Estimat Glomerular Filtration Rate 101, BUN/Creatinine Ratio 11, Glucose Level 104, Calcium Level 8.8, Corrected Calcium 9.4, Phosphorus Level 3.4, Magnesium Level 1.9, Total Bilirubin 0.5, Aspartate Amino Transf (AST/SGOT) 24, Alanine Aminotransferase (ALT/SGPT) 48, Alkaline Phosphatase 138H, Total Protein 5.9L, Albumin 3.2 Microbiology 05/10/22 MRSA Screen - Final, Complete MRSA not isolated Assessment/Plan Assessment/Plan Assessment/Plan Left Pleural Effusion Pericardial Effusion Atrial fibrillation View CXR when available Supportive Care Incentive Spirometer and Ambulation Continue collaboration with Cardiology If pt improves move pt out of ICU IMMANUEL PURCELL DO 05/13/222028: Subjective Subjective/Events-last exam Breathing a little easier. Still will have some shortness of breath at times. Pain controlled. at bedside. Denies n/v fever sweats chills or chest pain at this time. Objective Exam General Appearance: No Apparent Distress, WD/WN HEENT: PERRL/EOMI, Normal ENT Inspection Neck: Normal Inspection, Non Tender Respiratory: Chest Non Tender, No Accessory Muscle Use, No Respiratory Distress Cardiovascular: No JVD, Irregularly Irregular Gastrointestinal: non tender, soft Extremity: Non Tender Neurologic/Psychiatric: Alert, Oriented x3, Normal Mood/Affect Skin: Normal Color, Warm/Dry Lymphatic: No Adenopathy Assessment/Plan Assessment/Plan Assessment/Plan left pleural effusion pericardial effusion shortness of breath symptoms improving patient wanting to rest today. will repeat chest x ray in am if moderate to large effusion will consider thoracentesis. will follow. Supervisory-Addendum Brief Verification & Attestation Participated in pt care: history, MDM, physical Personally performed: exam, history, MDM, supervision of care Care discussed with: Medical Student Procedures: n/a Results interpretation: Verified all documentation Verification and Attestation of Medical Student E/M Service A medical student performed and documented this service in my presence. I reviewed and verified all information documented by the medical student and made modifications to such information, when appropriate. I personally performed the physical exam and medical decision making. Immanuel Purcell, May 13, 2022,20:29 KRISTAL WATERS May 13, 2022 08:26 IMMANUEL PURCELL DO May 13, 2022 20:29
[2022-05-13] MEDS: meTOproloL SUCCINATE 50 MG (TOPROL XL) TAB PO SCH (08:34)
[2022-05-13] MEDS: DOCUSATE SODIUM 100 MG (COLACE) CAP PO SCH ×2 (08:34→20:21)
[2022-05-13] MEDS: OMEGA 3 (FISH OIL) 1000 MG CAP PO SCH (08:34)
[2022-05-13] MEDS: lisINopril 10 MG (PRINIVIL) TABLET PO SCH (08:34)
[2022-05-13] MEDS: MULTIVIT W/MINERALS TAB (THERAGRAN M) PO SCH (08:34)
--- NOTE | 2022-05-13 11:27 | Cardiology Progress Note ---
Progress Note-Cardiology Events since last exam Date Seen by Provider: May 13, 2022 Time Seen by Provider: 11:25 Events since last exam I am following him due to atrial fibrillation and pericardial effusion. The pericardial drain was removed on 05/12. His breathing has improved. He denies chest pain, palpitations, syncope, or ankle edema. Vitals Last set of Vitals Signs Vital Signs 05/10/22 05/13/22 05/13/22 20:28 12:00 12:29 Temp 37.0 Pulse 89 Resp 12 B/P (MAP) 146/74 (98) Pulse Ox 94 O2 Delivery Nasal Cannula O2 Flow Rate 2.00 FiO2 21 Labs Labs Laboratory Tests 05/13/22 04:35 Exam Vital Signs Vital Signs Date Time Temp Pulse Resp B/P (MAP) Pulse Ox O2 Delivery O2 Flow Rate FiO2 05/13/22 12:29 89 05/13/22 12:00 37.0 12 146/74 (98) 94 Nasal Cannula 2.00 05/10/22 20:28 21 Physical Exam General: Alert. No acute distress. Eye: No xanthelasma. HENT: Normocephalic. Neck: Jugular venous pressure does not appear elevated. Respiratory: Lungs are clear to auscultation but decreased at the bases bilaterally. Respirations are non-labored. Breath sounds are equal. Symmetrical chest wall expansion. Cardiovascular: Normal rate. Regular rhythm. No murmur. No gallop. No edema. Gastrointestinal: Soft. Normal bowel sounds. Skin: Warm. Dry. Neurologic: Alert and oriented to person, place, time. Cranial nerves 3-11 grossly intact. Psychiatric: Cooperative. Appropriate mood & affect. Labs Laboratory Tests Test 05/13/22 04:35 Range/Units White Blood Count 17.5 H 4.3-11.0 10^3/uL Red Blood Count 4.26 L 4.30-5.52 10^6/uL Hemoglobin 12.6 L 13.3-17.7 g/dL Hematocrit 39 L 40-54 % Mean Corpuscular Volume 91 80-99 fL Mean Corpuscular Hemoglobin 30 25-34 pg Mean Corpuscular Hemoglobin Concent 33 32-36 g/dL Red Cell Distribution Width 13.2 10.0-14.5 % Platelet Count 440 H 130-400 10^3/uL Mean Platelet Volume 9.4 9.0-12.2 fL Immature Granulocyte % (Auto) 1 % Neutrophils (%) (Auto) 71 42-75 % Lymphocytes (%) (Auto) 19 12-44 % Monocytes (%) (Auto) 9 0-12 % Eosinophils (%) (Auto) 1 0-10 % Basophils (%) (Auto) 0 0-10 % Neutrophils # (Auto) 12.5 H 1.8-7.8 10^3/uL Lymphocytes # (Auto) 3.3 1.0-4.0 10^3/uL Monocytes # (Auto) 1.5 H 0.0-1.0 10^3/uL Eosinophils # (Auto) 0.1 0.0-0.3 10^3/uL Basophils # (Auto) 0.1 0.0-0.1 10^3/uL Immature Granulocyte # (Auto) 0.1 0.0-0.1 10^3/uL Sodium Level 133 L 135-145 MMOL/L Potassium Level 4.4 3.6-5.0 MMOL/L Chloride Level 98 98-107 MMOL/L Carbon Dioxide Level 24 21-32 MMOL/L Anion Gap 11 5-14 MMOL/L Blood Urea Nitrogen 7 7-18 MG/DL Creatinine 0.63 0.60-1.30 MG/DL Estimat Glomerular Filtration Rate 101 BUN/Creatinine Ratio 11 Glucose Level 104 70-105 MG/DL Calcium Level 8.8 8.5-10.1 MG/DL Corrected Calcium 9.4 8.5-10.1 MG/DL Phosphorus Level 3.4 2.3-4.7 MG/DL Magnesium Level 1.9 1.6-2.4 MG/DL Total Bilirubin 0.5 0.1-1.0 MG/DL Aspartate Amino Transf (AST/SGOT) 24 5-34 U/L Alanine Aminotransferase (ALT/SGPT) 48 0-55 U/L Alkaline Phosphatase 138 H 40-136 U/L Total Protein 5.9 L 6.4-8.2 GM/DL Albumin 3.2 3.2-4.5 GM/DL Radiology ECHOCARDIOGRAM (05/13/2022): 1. This is a limited study with 2D and Doppler to assess pericardial effusion. 2. Left ventricle: Systolic function is normal. The estimated ejection fraction is 60-65%. There is paradoxical septal motion consistent with an intraventricul ar conduction delay. 3. Pericardium, extracardiac: A small pericardial effusion is identified circum ferential to the heart. There is a right pleural effusion and a left pleural effusion. 4. Compared to the previous study from 05/11/2022 that was performed immediately following pericardial drain placement, the pericardial effusion appears similar on both studies. There do not appear to be any signs of reaccumulation on this current study. Diagnosis/Problems Diagnosis/Problems (1) Pericardial effusion Assessment & Plan: Etiology unclear. The patient may have had a recent viral illness although he had one negative COVID test. He has been fully vaccinated for COVID as well as boosted with omicron booster. He does have an elevated white blood cell count but he does not have a fever at this time. He underwent a pericardiocentesis on 05/11 that removed approximately 560 mL of bloody fluid. The pericardial drain was left in overnight and removed on 05/12. A repeat echocardiogram on 05/13 shows no reaccumulation of fluid. Laboratory studies are pending on the fluid. (2) Paroxysmal atrial fibrillation Assessment & Plan: This may have been brought on by the pericardial effusion. This resolved with diltiazem infusion but then recurred. I started him on beta- moses and weaned off the intravenous diltiazem. We may need to consider starting oral anticoagulation but he is in sinus rhythm today and I just removed the pericardial drain on 05/12. I will reevaluate on 05/14 and decide whether or not to start him on anticoagulation. (3) Primary hypertension Assessment & Plan: He was hypertensive on 05/11 following the pericar diocentesis and restarted his lisinopril at that time. He is also on beta- moses due to the atrial fibrillation. His blood pressures have improved. (4) Mixed hyperlipidemia Assessment & Plan: Continue statin medication. JARRED ESPINO JR, MD May 13, 2022 11:27
--- NOTE | 2022-05-13 12:01 | Progress Note - Hospitalist ---
[facility] 05/13/22 1201: Subjective HPI/CC On Admission Date Seen by Provider: May 13, 2022 Time Seen by Provider: 10:15 New-Onset Atrial Fibrillation Subjective/Events-last exam Cristian Sebastian is a 71 yo male who was admitted to the ICU from the ED for new-onset afib. He is s/p pericardiocentesis on 05/10 and the tube was removed 05/12, fluid was bloody. Decubitus CXR revealed left pleural effusion. Surgery has been consulted regarding possible thoracentesis. Echocardiogram 05/13 showed EF 60% and no signs of reaccummulation of pericardial effusion, bilateral pleural effusions noted. Today he notes having sinus congestion. Otherwise, he is feeling better and is sitting in his recliner. Still with some SOB on exertion. He has not had a BM but notes chronic issues with constipation. His is bedside. Review of Systems HEENT: Sinus Congestion; No Sore Throat Pulmonary: Dyspnea, Cough (improved) Cardiovascular: No: Chest Pain Gastrointestinal: Constipation; No: Nausea, Vomiting Genitourinary: No Dysuria, No Frequency Objective Exam Vital Signs Vital Signs Date Time Temp Pulse Resp B/P (MAP) Pulse Ox O2 Delivery O2 Flow Rate FiO2 05/13/22 10:00 93 14 132/70 (90) 94 High Flow N/C 2.00 05/13/22 07:59 36.8 05/10/22 20:28 21 Capillary Refill : Less Than 3 Seconds General Appearance: No Apparent Distress, WD/WN, Chronically ill HEENT: PERRL/EOMI, Pharynx Normal, Other (minimal maxillary tenderness) Neck: Full Range of Motion, Non Tender Respiratory: Chest Non Tender, No Accessory Muscle Use, No Respiratory Distress, Wheezing Cardiovascular: No Edema, No Gallop, No JVD, No Murmur, Normal Peripheral Pulses, Irregularly Irregular, Tachycardia Gastrointestinal: Normal Bowel Sounds, Non Tender, Soft Extremity: Normal Capillary Refill, No Pedal Edema Neurologic/Psychiatric: Alert, Oriented x3, No Motor/Sensory Deficits, Normal Mood/Affect Skin: Normal Color, Warm/Dry Results/Procedures Lab Laboratory Tests 05/13/22 04:35 Patient resulted labs reviewed. Imaging: Reviewed Imaging Report Assessment/Plan Assessment and Plan Assess & Plan/Chief Complaint 1. New onset atrial fibrillation: metoprolol for rate control. Cardiology appreciated. 2. Pericardial effusion: s/p pericardiocentesis on 05/10, tube removed 05/12, fluid was bloody. Echo today had no signs of reaccummulation. 3. Pleural effusion: Treat patient's underlying atrial fibrillation and pericardial effusion. General surgery appreciated 4. Anemia: 05/13: hgb 12.6. Repeat CBC in 24 hours. 5. Hx of stroke of unknown etiology, 2013. 6. Hx of HTN, HLD. 7. Leukocytosis: Recheck CBC in 24 hours. 8. Sinus congestion: likely d/t presumed COVID in recent history Move to 4th floor given improved status and exam. PT, OT ordered. JINNY OCONNELL DO 05/14/22 0455: Subjective Subjective/Events-last exam Patient doing a lot better Constipation will be resolved Moving to the floor Objective Exam General Appearance: No Apparent Distress, WD/WN, Chronically ill Respiratory: Wheezing Cardiovascular: Irregularly Irregular, Tachycardia Assessment/Plan Assessment and Plan Assess & Plan/Chief Complaint Supportive care Supervisory-Addendum Brief Verification & Attestation Participated in pt care: history, MDM, physical Personally performed: exam, history, MDM, supervision of care Care discussed with: Medical Student Procedures: n/a Results interpretation: Verified all documentation Verification and Attestation of Medical Student E/M Service A medical student performed and documented this service in my presence. I reviewed and verified all information documented by the medical student and made modifications to such information, when appropriate. I personally performed the physical exam and medical decision making. Jinny Oconnell May 14, 2022,04:55 MARIO ESPARZA May 13, 2022 12:01 JINNY OCONNELL DO May 14, 2022 04:55
--- NOTE | 2022-05-13 12:08 | Occupational Therapy Eval ---
OT Evaluation-General/PLF Medical Diagnosis Admission Date May 11, 2022 at 10:00 Medical Diagnosis: A-fib with RVR Onset Date: May 11, 2022 Therapy Diagnosis Therapy Diagnosis: reduced endurance Height/Weight Height (Feet): 5 Height (Inches): 7.00 Weight (Pounds): 198 Weight (Ounces): 0.0 Precautions Precautions/Isolations: Fall Prevention, Standard Precautions Referral Physician: Harpreet Referral Reason: Evaluation/Treatment Medical History Current History Pt presented to hospital with c/o difficulty sleeping secondary to SOB and BLE swelling. per patient, he lives with his in a single story home. He was indep with adls and shares iadl responsibilities with his spouse. He was not using any AD at baseline. Reviewed History: Yes Social History Home: Single Level Current Living Status: Spouse Entry Into Home: Ramp, Stairs With Railing ADL-Prior Level of Function SCALE: Activities may be completed with or without assistive devices. 7-Rrloymrdsr-wkemibo completes the activity by him/herself with no assistance from a helper. 5-Set-up or Clean-up Assistance-helper sets up or cleans up; patient completes activity. [place] assists only prior to or following the activity. 4-Supervision or Touching Assistance-helper provides verbal cues and/or touching/steadying and/or contact guard assistance as patient completes activity. Assistance may be provided throughout the activity or intermittently. 3-Partial/Moderate Assistance-helper does LESS THAN HALF the effort. [place] lifts, holds or supports trunk or limbs, but provides less than half the effort. 2-Substantial/Maximal Assistance-helper does MORE THAN HALF the effort. [place] lifts or holds trunk or limbs and provides more than half the effort. 3-Eecrotdag-suxfqf does ALL the effort. Patient does none of the effort to complete the activity. Or, the assistance of 2 or more helpers is required for the patient to complete the activity. If activity was not attempted, code reason: 7-Patient Refused. 9-Not Applicable-not attempted and the patient did not perform the activity before the current illness, exacerbation or injury. 10-Not Attempted due to Environmental Limitations-(lack of equipment, weather restraints, etc.). 88-Not Attempted due to Medical Conditions or Safety Concerns. Self Care: Independent Functional Cognition: Independent DME/Equipment: Tub/Shower reports is looking into purchasing a shower chair. OT Current Status Subjective Pt denies pain, agreeable to evaluation Appearance Pt returned to supine in bed, present, RN notified. Mental Status/Objective Patient Orientation: Person, Place, Situation Attachments: [place] Catheter, IV, Oxygen (2L), SCD's, Telemetry Current Glasses/Contacts: Yes Hearing Aids: No Dentures/Partials: Yes Hand Dominance: Right Upper Extremity ROM WFL Upper Extremity Strength WNL ADL-Treatment Lower Body Dressing (QC): 4 On/Off Footwear (QC): 6 Supine<>sit: Indep. Pt able to independently don/doff bilateral socks with use of cross over method. He does require unilateral UE support to maintain balance with dynamic sitting tasks. Sit<>stand: Supervision. Pt stood for ~2 minutes. Able to reach slightly out of CHANELLE without LOB. He took 3 steps towards HOB with SBA for management of multiple lines. Pt does exhibit SOA with exertion but oxygen remains >92%. Pt can benefit from short term OT to address endurance, en ergy conservation strategies and safety during adl tasks. Education OT Patient Education: Energy conservation, Modified ADL techniques, Purpose of tx/functional activities Teaching Recipient: Patient, Family Teaching Methods: Demonstration, Discussion Response to Teaching: Verbalize Understanding, Return Demonstration, Reinforcement Needed OT Wood Last Maker Goals Halfway Goals Time Frame: May 20, 2022 Eating (QC): 6 Oral Hygiene (QC): 6 Toileting Hygiene (QC): 6 Shower/Bathe Self (QC): 4 Upper Body Dressing (QC): 6 Lower Body Dressing (QC): 6 On/Off Footwear (QC): 6 Additional Goals: 1-Demonstrate ADL Tasks, 2-Verbalize Understanding, 3- ImproveStrength/Leon 1=Demonstrate adherence to instructed precautions during ADL tasks. 2=Patient will verbalize/demonstrate understanding of assistive devices/modifications for ADL. 3=Patient will improve strength/tolerance for activity to enable patient to perform ADL's. OT Education/Plan Problem List/Assessment Assessment: Decreased Activ Tolerance, Impaired I ADL's, Impaired Self-Care Skills Discharge Recommendations Plan/Recommendations: Continue POC Therapy Discharge Recommendati: Home & Family (Home with family support pending progress ) Treatment Plan/Plan of Care Treatment,Training & Education: Yes Patient would benefit from OT for education, treatment and training to promote independence in ADL's, mobility, safety and/or upper extremity function for ADL's. Plan of Care: ADL Retraining, Functional Mobility, UE Funct Exercise/Act Treatment Duration: May 20, 2022 Frequency: 3 times per week (3-5x/week ) Estimated Hrs Per Day: .25 hour per day Agreement: Yes Time Start Time: 11:49 Stop Time: 12:00 DATE: May 13, 2022 Total Time Billed (hr/min): 11 Billed Treatment Time 1 visit Mamta Hensley OT May 13, 2022 12:08
--- NOTE | 2022-05-13 12:12 | Tele-ICU Progress Note ---
Subjective Date Seen by a Provider: May 13, 2022 Time Seen by a Provider: 09:45 Subjective/Events-last exam (Tele-ICU Physician , Progress Note ) Service provided via interactive audio and video telecommunications E-CARE system to a patient admitted to ICU bed in [facility]. Available chart/ vitals / labs / Images reviewed Video assessment done using teleICU camera, rest of exam as per RN Discussed with RN Events overnight : Afebrile hemodynamically stable Respiratory - 2l I/O = pos 400 Drips: Pressors- no Consultants: [facility] Hospital course: (05/10) 71yr old male admitted with Afib/rvr, pericardial effusion, and pleural effusion (05/11) s/p pericardiocentesis with 560ml of bloody fluid drained Patient is seen today due to persistent hypoxia A/P Acute resp insufficiency , hypoxia - 2 L - CXR and CTA show no pulm emb -NEG COVID and flu serology - keep neg fluid status pleural effusions L > R -no indications for TX thoracentesis now , 05/12 -sx consulted for thora on LEFT Pericardial effusion with impending tamponade - Etiology unclear, labs pending (05/11) s/p pericardiocentesis with 560ml of bloody fluid drained - plans as per cards Afib with RVR, pericardial effusion ( post viral CM ? - IMTERMITTENT SINUS TODAY after drained effusion - cards follow - ECHO RF 55% - heparin gtt OFF Recent viral syndrome - 4 weeks , serology neg now . Leukocytosis - follow off ABX Lines : periph , (Central Line Necessity Reviewed) Rosas: void OG: Nutrition: po Analgesia: Anxiety/ delirium VTE Prophylaxis: hep gtt off , contraindic with bloody effusion , SCD Stress Ulcer Prophylaxis: na Plans in collaboration with bedside consultants and IM MDs. Discussed with RN to reach out if any questions or concerns A total of 25 minutes of critical care time was devoted to this patient today, required to treat and/or prevent further deterioration of critical care condition ( as above ) . Sepsis Event Evaluation Height, Weight, BMI Height: 5'7.00" Weight: 198lbs. 0.0oz. [id number]; 31.73 BMI Method: Exam Exam Patient acknowledged, consented, and participated in this virtual visit which was conducted using real time audio/video Vital Signs Date Time Temp Pulse Resp B/P (MAP) Pulse Ox O2 Delivery O2 Flow Rate FiO2 05/13/22 12:00 37.0 84 12 146/74 (98) 94 Nasal Cannula 2.00 05/13/22 10:00 93 14 132/70 (90) 94 High Flow N/C 2.00 05/13/22 09:00 98 16 137/71 (93) 94 High Flow N/C 2.00 05/13/22 08:10 92 Nasal Cannula 2.00 05/13/22 08:00 91 17 138/63 (88) 95 High Flow N/C 2.00 05/13/22 08:00 96 Nasal Cannula 2.00 05/13/22 07:59 36.8 05/13/22 07:09 89 05/13/22 07:00 95 22 135/92 (106) 95 High Flow N/C 2.00 05/13/22 06:00 95 17 146/99 (115) 96 High Flow N/C 2.00 05/13/22 05:00 93 17 156/98 (117) 96 High Flow N/C 2.00 05/13/22 04:41 96 Nasal Cannula 2.00 05/13/22 04:00 88 12 144/81 (102) 95 High Flow N/C 2.00 05/13/22 03:09 36.7 High Flow N/C 2.00 05/13/22 03:00 90 12 126/76 (93) 96 High Flow N/C 2.00 05/13/22 02:00 89 12 158/83 (108) 95 High Flow N/C 2.00 05/13/22 01:00 91 13 131/78 (95) 94 High Flow N/C 2.00 05/13/22 01:00 90 05/13/22 00:30 95 Nasal Cannula 2.00 05/13/22 00:00 95 16 137/86 (103) 93 High Flow N/C 2.00 05/12/22 23:00 80 17 137/83 (101) 93 High Flow N/C 2.00 05/12/22 22:39 36.2 05/12/22 22:00 95 24 144/82 (102) 94 High Flow N/C 2.00 05/12/22 21:49 92 Nasal Cannula 2.00 05/12/22 21:00 91 33 133/88 (103) 96 High Flow N/C 2.00 05/12/22 20:33 94 Nasal Cannula 2.00 05/12/22 20:00 94 16 135/82 (99) 96 High Flow N/C 2.00 05/12/22 19:00 92 22 153/92 (112) 96 High Flow N/C 2.00 05/12/22 19:00 37.2 High Flow N/C 2.00 05/12/22 19:00 90 05/12/22 18:00 87 12 135/71 (92) 95 High Flow N/C 2.00 05/12/22 17:00 94 20 121/78 (92) 89 High Flow N/C 2.00 05/12/22 16:32 36.7 05/12/22 16:06 95 Nasal Cannula 2.00 05/12/22 16:00 96 28 150/101 (117) 93 High Flow N/C 2.00 05/12/22 15:00 96 10 150/101 (117) 92 High Flow N/C 2.00 05/12/22 14:00 94 14 117/68 (84) 93 High Flow N/C 2.00 05/12/22 13:00 98 10 136/67 (90) 94 High Flow N/C 2.00 05/12/22 13:00 95 I & O 05/13/22 07:00 Intake Total 2800 ml Output Total 1850 ml Balance 950 ml Height & Weight Height: 5'7.00" Weight: 198lbs. 0.0oz. [id number]; 31.73 BMI Method: General Appearance: WD/WN, Anxious, Chronically ill, Mild Distress HEENT: PERRL/EOMI, Normal ENT Inspection, Pharynx Normal, Moist Mucous Membranes Neck: Full Range of Motion, Normal Inspection, Non Tender Respiratory: Decreased Breath Sounds, Wheezing Cardiovascular: Irregularly Irregular, Tachycardia Capillary Refill: Less Than 3 Seconds Peripheral Pulses: 2+ Radial Pulses (R), 2+ Radial Pulses (L) Gastrointestinal: normal bowel sounds, non tender, soft Extremity: Non Tender, No Pedal Edema Neurologic/Psychiatric: Alert, Oriented x3 Skin: Normal Color, Warm/Dry Lymphatic: No Adenopathy Results Lab Laboratory Tests 05/12/22 05:25 05/13/22 04:35 Assessment/Plan Assessment/Plan 1 ROSETTE CAAL MD May 13, 2022 12:12
--- NOTE | 2022-05-13 14:41 | Physical Therapy Evaluation ---
PT Evaluation-General Medical Diagnosis Admission Date May 11, 2022 at 10:00 Medical Diagnosis: A-fib with RVR Onset Date: May 11, 2022 Therapy Diagnosis Therapy Diagnosis: debility/weakness Height/Weight Height (Feet): 5 Height (Inches): 7.00 Weight (Pounds): 198 Weight (Ounces): 0.0 Precautions Precautions/Isolations: Fall Prevention, Standard Precautions Referral Physician: Harpreet Reason for Referral: Evaluation/Treatment Medical History Pertinent Medical History: HTN Current History ER secondary to SOA and bilateral LE edema Reviewed History: Yes Social History Home: Single Level Current Living Status: Spouse Entry Into Home: Ramp, Stairs With Railing Prior Prior Level of Function SCALE: Activities may be completed with or without assistive devices. 5-[place]-nuhwlna completes the activity by him/herself with no assistance from a helper. 5-Set-up or Clean-up Assistance-helper sets up or cleans up; patient completes activity. [place] assists only prior to or following the activity. 4-Supervision or Touching Assistance-helper provides verbal cues and/or touching/steadying and/or contact guard assistance as patient completes activity. Assistance may be provided throughout the activity or intermittently. 3-Partial/Moderate Assistance-helper does LESS THAN HALF the effort. [place] lifts, holds or supports trunk or limbs, but provides less than half the effort. 2-Substantial/Maximal Assistance-helper does MORE THAN HALF the effort. [place] lifts or holds trunk or limbs and provides more than half the effort. 8-Mzccopcps-slkqdw does ALL the effort. Patient does none of the effort to complete the activity. Or, the assistance of 2 or more helpers is required for the patient to complete the activity. If activity was not attempted, code reason: 7-Patient Refused. 9-Not Applicable-not attempted and the patient did not perform the activity before the current illness, exacerbation or injury. 10-Not Attempted due to Environmental Limitations-(lack of equipment, weather restraints, etc.). 88-Not Attempted due to Medical Conditions or Safety Concerns. Bed Mobility: 6 Transfers (B,C,W/C): 6 Gait: 6 Stairs: 6 Indoor Mobility (Ambulation): Independent Stairs: Independent Prior Devices Use: None PT Evaluation-Current Subjective Patient agrees to PT. Objective Patient Orientation: Normal For Age Attachments: Oxygen ROM/Strength ROM Lower Extremities bilateral LE WFL Strength Lower Extremities 4/5 grossly bilateral LE Integumentary/Posture Bowel Incontinence: No Bladder Incontinence: Rosas Cath Posture WFL Neuromuscular (Tone, Coordination, Reflexes) grossly intact Sensory Vision: Wears Glasses Hearing: Functional Hand Dominance: Right Transfers Sit to Lying (QC): 6 Lying to Sitting/Side of Bed(Q: 6 Sit to Stand (QC): 4 Chair/Ptw-ux-Cmjhz Xfer(QC): 4 Gait Mode of Locomotion: Walk Anticipated Mode of Locomotion: Walk Walk 10 feet (QC): 4 Walk 50 ft with 2 Turns(QC): 4 Walk 150 ft (QC): 4 Distance: 300' Gait Assistive Device: FWW Comments/Gait Description steady, functional gait sequence Balance Sitting Static: Normal Sitting Dynamic: Normal Standing Static: Normal Standing Dynamic: Normal Assessment/Needs Patient will be seen short term by skilled PT to address functional strength and mobility to improve current LOF to ensure safe return to home with spouse. Rehab Potential: Fair PT Manager Contact Goals Mcc Goals PT Mcc Goals Time Frame: May 22, 2022 Roll Left & Right (QC): 6 Sit to Lying (QC): 6 Lying-Sitting on Side/Bed(QC): 6 Sit to Stand (QC): 6 Chair/Lim-qv-Dgppn Xfer(QC): 6 Toilet Transfer (QC): 6 Walk 10 feet (QC): 6 Walk 50ft with 2 Turns (QC): 6 Walk 150 ft (QC): 6 PT Plan Problem List Problem List: Activity Tolerance Treatment/Plan Treatment Plan: Continue Plan of Care Treatment Plan: Education, Functional Activity Leon, Functional Strength, Gait, Safety, Therapeutic Exercise, Transfers Treatment Duration: May 22, 2022 Frequency: 6 times per week Estimated Hrs Per Day: .25 hour per day Patient and/or Family Agrees t: Yes Discharge Recommendations Therapy Discharge Recommendati: Home & Family Time Time In: 1405 Time Out: 1421 DATE: May 13, 2022 Total Billed Treatment Time: 16 Total Billed Treatment 1 visit EVMod 16 min DILEEP MCALLISTER PT May 13, 2022 14:41
[2022-05-13] MEDS: AtorvaSTATin TABLET 10 MG TABLET PO SCH (20:21)
[2022-05-13] MEDS: ASPIRIN E.C. 81 MG (ECOTRIN) TAB PO SCH (20:21)
[2022-05-13] MEDS ORDERED: dilTIAZem DRIP PRE-MIX 125 ML IV SCH (23:00)
[2022-05-13] MEDS ORDERED: NS (IVPB) 0 ML ONE (23:09)
[2022-05-14] VITALS (15 sets, daily range): BP systolic 120–179; BP diastolic 71–91
[2022-05-14 05:10] LABS: BASOPHILS % (AUTO) 0 % (0-10); EOSINOPHILS # (AUTO) 0.2 10^3/uL (0.0-0.3); EOSINOPHILS % (AUTO) 1 % (0-10); HEMATOCRIT 37 % (40-54); HEMOGLOBIN 12.3 g/dL (13.3-17.7); LYMPHOCYTES # (AUTO) 3.5 10^3/uL (1.0-4.0); LYMPHOCYTES % (AUTO) 23 % (12-44); MEAN CORPUSCULAR HEMOGLOBIN 30 pg (25-34); MEAN CORPUSCULAR HGB CONC 33 g/dL (32-36); MEAN CORPUSCULAR VOLUME 91 fL (80-99); MEAN PLATELET VOLUME 9.5 fL (9.0-12.2); MONOCYTES # (AUTO) 1.3 10^3/uL (0.0-1.0); MONOCYTES % (AUTO) 9 % (0-12); NEUTROPHILS # (AUTO) 10.2 10^3/uL (1.8-7.8); NEUTROPHILS % (AUTO) 67 % (42-75); PLATELET COUNT 456 10^3/uL (130-400); WHITE BLOOD COUNT 15.2 10^3/uL (4.3-11.0)
[2022-05-14 05:28] LABS: ALBUMIN 3.1 GM/DL (3.2-4.5); BILIRUBIN,TOTAL 0.4 MG/DL (0.1-1.0); CALCIUM 8.7 MG/DL (8.5-10.1); CREATININE SERUM 0.64 MG/DL (0.60-1.30); MAGNESIUM 1.9 MG/DL (1.6-2.4); POTASSIUM 4.3 MMOL/L (3.6-5.0); TOTAL PROTEIN 5.8 GM/DL (6.4-8.2)
[2022-05-14] MEDS: MULTIVIT W/MINERALS TAB (THERAGRAN M) PO SCH (06:02)
[2022-05-14] MEDS: RT-ALBUTEROL SULF 2.5 MG/3 ML PRE-MIX VIAL INH SCH (07:08)
--- NOTE | 2022-05-14 07:24 | Physical Therapy Progress Note ---
Therapy Progress Note Patient transferred to ICU due to A-fib with RVR. PT evaluated patient 05/13/22 in room 415. PT will require new orders when patient is deemed medically stable and able to actively participate with skilled therapy. DILEEP MCALLISTER PT May 14, 2022 07:24
--- NOTE | 2022-05-14 07:58 | Occ Therapy Progress Note ---
Therapy Progress Note Patient transferred to ICU due to A-fib with RVR. OT evaluated patient 05/13/22 just before pt was transferred to 415. After OT evaluation was completed pt transferred back to ICU 10 due to decline in medical status. OT will require new orders when patient is deemed medically stable and able to actively participate with skilled therapy. PAWEL SIMPSON May 14, 2022 07:58
--- NOTE | 2022-05-14 08:08 | Progress Note - Surgery ---
KRISTAL WATERS 05/14/22 0808: Subjective Date Seen by a Provider: May 14, 2022 Subjective/Events-last exam Pt seems to be doing well and was sitting up in chair during interview. His SOB has improved and was able to ambulate to the 4th floor when he was being transferred without a problem. Pt was sent back to ICU 10 due to elevated HR per nurse. Since then, he has had sinus rhythm. Pt states that his sleep isn't very well during the night and gets up about every hour. Pt is using 2L oxygen per NC during the night. Pt is voiding with urinal and had a BM yesterday. Pt denies pain, fever, CASH, numbness/tingling, N/V/D, dysuria, and voiding frequency. Review of Systems General: No Chills, No Night Sweats HEENT: No Head Aches; Sinus Congestion Pulmonary: Dyspnea, Cough Cardiovascular: No: Chest Pain, Palpitations, Edema, Lt Headedness Gastrointestinal: No: Nausea, Vomiting, Diarrhea, Constipation Genitourinary: No Dysuria, No Frequency Neurological: No: Weakness, Numbness, Incoordination Objective Exam Vital Signs Date Time Temp Pulse Resp B/P (MAP) Pulse Ox O2 Delivery O2 Flow Rate FiO2 05/14/22 07:48 36.0 05/14/22 07:16 94 Room Air 0.00 05/14/22 07:08 98 Nasal Cannula 2.00 05/14/22 06:00 94 20 152/76 (101) 97 Nasal Cannula 2.00 05/14/22 05:00 89 10 162/75 (104) 97 Nasal Cannula 2.00 05/14/22 04:00 36.6 85 10 162/73 (102) 97 Nasal Cannula 2.00 05/14/22 04:00 97 Nasal Cannula 2.00 05/14/22 03:00 95 12 165/91 (115) 96 Nasal Cannula 2.00 05/14/22 01:00 87 05/14/22 00:00 91 33 120/87 (98) 97 Nasal Cannula 4.00 05/13/22 23:40 95 126/73 05/13/22 23:31 96 Nasal Cannula 2.00 05/13/22 23:30 92 10 156/73 (100) 97 Nasal Cannula 4.00 05/13/22 23:29 92 10 126/73 (90) 96 Nasal Cannula 2.00 05/13/22 23:15 131 10 125/91 (102) 95 Nasal Cannula 4.00 05/13/22 23:00 138 12 146/84 (104) 96 Nasal Cannula 4.00 05/13/22 22:59 36.9 152 13 146/84 (104) 97 Nasal Cannula 2.00 05/13/22 22:45 138 12 124/79 (94) 96 Nasal Cannula 4.00 05/13/22 22:18 35.9 95 98 05/13/22 21:01 98 Nasal Cannula 4.00 05/13/22 20:15 94 135/72 (93) 05/13/22 20:02 35.9 95 18 181/73 (109) 97 Nasal Cannula 4.00 05/13/22 20:00 Nasal Cannula 3.00 05/13/22 19:00 94 05/13/22 16:39 96 Nasal Cannula 3.00 05/13/22 15:08 96 Nasal Cannula 3.00 05/13/22 15:00 36.5 91 16 148/66 (93) 98 Nasal Cannula 3.00 05/13/22 14:23 94 05/13/22 12:29 89 05/13/22 12:00 37.0 84 12 146/74 (98) 94 Nasal Cannula 2.00 05/13/22 10:00 93 14 132/70 (90) 94 High Flow N/C 2.00 05/13/22 09:00 98 16 137/71 (93) 94 High Flow N/C 2.00 05/13/22 08:10 92 Nasal Cannula 2.00 I & O 05/14/22 07:00 Intake Total 1330 ml Output Total 1500 ml Balance -170 ml Capillary Refill : Less Than 3 Seconds General Appearance: No Apparent Distress, WD/WN, Chronically ill HEENT: PERRL/EOMI, Normal ENT Inspection Neck: Normal Inspection, Non Tender Respiratory: Chest Non Tender, Lungs Clear, Normal Breath Sounds, Wheezing Cardiovascular: Regular Rate, Rhythm, No Edema, No Gallop, No JVD, No Murmur, Normal Peripheral Pulses, Irregularly Irregular, Tachycardia Peripheral Pulses: 2+ Radial Pulses (R), 2+ Radial Pulses (L) Gastrointestinal: non tender, soft Extremity: Non Tender, No Pedal Edema Neurologic/Psychiatric: Alert, Oriented x3, Normal Mood/Affect Skin: Normal Color, Warm/Dry Lymphatic: No Adenopathy Results Lab Laboratory Tests 05/14/22 04:45: Sodium Level 134L, Potassium Level 4.3, Chloride Level 97L, Carbon Dioxide Level 29, Anion Gap 8, Blood Urea Nitrogen 8, Creatinine 0.64, Estimat Glomerular Filtration Rate 101, BUN/Creatinine Ratio 13, Glucose Level 99, Calcium Level 8 .7, Corrected Calcium 9.4, Magnesium Level 1.9, Total Bilirubin 0.4, Aspartate Amino Transf (AST/SGOT) 47H, Alanine Aminotransferase (ALT/SGPT) 62H, Alkaline Phosphatase 125, Total Protein 5.8L, Albumin 3.1L 05/14/22 04:50: White Blood Count 15.2H, Red Blood Count 4.10L, Hemoglobin 12.3L, Hematocrit 37L , Mean Corpuscular Volume 91, Mean Corpuscular Hemoglobin 30, Mean Corpuscular Hemoglobin Concent 33, Red Cell Distribution Width 13.0, Platelet Count 456H, Mean Platelet Volume 9.5, Immature Granulocyte % (Auto) 1, Neutrophils (%) (Auto) 67, Lymphocytes (%) (Auto) 23, Monocytes (%) (Auto) 9, Eosinophils (%) (Auto) 1, Basophils (%) (Auto) 0, Neutrophils # (Auto) 10.2H, Lymphocytes # (Auto) 3.5, Monocytes # (Auto) 1.3H, Eosinophils # (Auto) 0.2, Basophils # (Auto) 0.0, Immature Granulocyte # (Auto) 0.1 Microbiology 05/11/22 Acid Fast Bacilli Culture (Ref Lab - Preliminary, Resulted Culture In Progress See Comments 05/10/22 MRSA Screen - Final, Complete MRSA not isolated Assessment/Plan Assessment/Plan Assessment/Plan left pleural effusion pericardial effusion shortness of breath symptoms improving and is able to ambulate w/o issue View CXR report when available Monitor SOB and continue respiratory therapy if moderate to large effusion will consider thoracentesis. will follow. IMMANUEL MITCHELL DO 05/14/221945: Subjective Subjective/Events-last exam Patient on room air. Breathing is better. Slight swelling around the neck. Transferred back to ICU due to heart rate last night, but improved and wanting to go home. Denies n/v fever sweats chills or chest pain. Chest x ray this am: Cardiomegaly with persistent opacification in the left lower lung. Objective Exam General Appearance: No Apparent Distress, Chronically ill HEENT: PERRL/EOMI, Normal ENT Inspection, Other Neck: Non Tender, Other (slight swelling) Respiratory: Chest Non Tender, Normal Breath Sounds Cardiovascular: Regular Rate, Rhythm, No JVD, No Murmur Gastrointestinal: non tender, soft Extremity: Non Tender, No Calf Tenderness Neurologic/Psychiatric: Alert, Oriented x3, Normal Mood/Affect Skin: Normal Color, Warm/Dry Lymphatic: No Adenopathy Assessment/Plan Assessment/Plan Assessment/Plan left pleural effusion pericardial effusion shortness of breath symptoms improving and is able to ambulate w/o issue do not feel effusion needs drained at this time, if symptoms worsen would consider patient wanting to go home. will sign off, call if needed. Supervisory-Addendum Brief Verification & Attestation Participated in pt care: history, MDM, physical Personally performed: exam, history, MDM, supervision of care Care discussed with: Medical Student Procedures: n/a Results interpretation: Verified all documentation Verification and Attestation of Medical Student E/M Service A medical student performed and documented this service in my presence. I reviewed and verified all information documented by the medical student and made modifications to such information, when appropriate. I personally performed the physical exam and medical decision making. Immanuel Mitchell, May 14, 2022,19:46 KRISTAL WATERS May 14, 2022 08:08 IMMANUEL MITCHELL DO May 14, 2022 19:46
[2022-05-14] MEDS: OMEGA 3 (FISH OIL) 1000 MG CAP PO SCH (08:09)
[2022-05-14] MEDS: meTOproloL SUCCINATE 50 MG (TOPROL XL) TAB PO SCH (08:09)
[2022-05-14] MEDS: DOCUSATE SODIUM 100 MG (COLACE) CAP PO SCH (08:09)
[2022-05-14] MEDS: lisINopril 10 MG (PRINIVIL) TABLET PO SCH (08:09)
--- NOTE | 2022-05-14 08:58 | Cardiology Progress Note ---
Progress Note-Cardiology Events since last exam Date Seen by Provider: May 14, 2022 Time Seen by Provider: 08:56 Events since last exam I am following him due to pericardial effusion and atrial fibrillation. On 05/13 he was transferred to the medical floor. Late last evening he developed recurrent atrial fibrillation and was transferred back to the ICU. By the time he arrived in the ICU, he was back in a sinus rhythm. He denies any palpitations. He denies chest discomfort, dyspnea at rest, syncope, or ankle edema. Certain portions of this document may have been dictated utilizing voice recognition technology. Inherent to this technology, typographical and grammatical errors may exist. As much as I am diligent to identify and correct these mistakes, some errors may remain in the document. Vitals Last set of Vitals Signs Vital Signs 05/10/22 05/14/22 05/14/22 05/14/22 20:28 07:16 11:41 12:00 Temp 36.2 Pulse 84 Resp 25 B/P (MAP) 144/72 (96) Pulse Ox 91 O2 Delivery Room Air O2 Flow Rate 0.00 FiO2 21 Labs Labs Laboratory Tests 05/14/22 04:45 05/14/22 04:50 Exam Vital Signs Vital Signs Date Time Temp Pulse Resp B/P (MAP) Pulse Ox O2 Delivery O2 Flow Rate FiO2 05/14/22 12:00 84 25 144/72 (96) 91 Room Air 05/14/22 11:41 36.2 05/14/22 07:16 0.00 05/10/22 20:28 21 Physical Exam General: Alert. No acute distress. He is overweight. Eye: No xanthelasma. HENT: Normocephalic. Neck: Jugular venous pressure does not appear elevated. Respiratory: Lungs are clear to auscultation. Respirations are non-labored. Breath sounds are equal. Symmetrical chest wall expansion. Cardiovascular: Normal rate. Regular rhythm. No murmur. No gallop. No edema. Gastrointestinal: Soft. Normal bowel sounds. Skin: Warm. Dry. Neurologic: Alert and oriented to person, place, time. Cranial nerves 3-11 grossly intact. Psychiatric: Cooperative. Appropriate mood & affect. Labs Laboratory Tests Test 05/14/22 04:45 05/14/22 04:50 Range/Units Sodium Level 134 L 135-145 MMOL/L Potassium Level 4.3 3.6-5.0 MMOL/L Chloride Level 97 L 98-107 MMOL/L Carbon Dioxide Level 29 21-32 MMOL/L Anion Gap 8 5-14 MMOL/L Blood Urea Nitrogen 8 7-18 MG/DL Creatinine 0.64 0.60-1.30 MG/DL Estimat Glomerular Filtration Rate 101 BUN/Creatinine Ratio 13 Glucose Level 99 70-105 MG/DL Calcium Level 8.7 8.5-10.1 MG/DL Corrected Calcium 9.4 8.5-10.1 MG/DL Magnesium Level 1.9 1.6-2.4 MG/DL Total Bilirubin 0.4 0.1-1.0 MG/DL Aspartate Amino Transf (AST/SGOT) 47 H 5-34 U/L Alanine Aminotransferase (ALT/SGPT) 62 H 0-55 U/L Alkaline Phosphatase 125 40-136 U/L Total Protein 5.8 L 6.4-8.2 GM/DL Albumin 3.1 L 3.2-4.5 GM/DL White Blood Count 15.2 H 4.3-11.0 10^3/uL Red Blood Count 4.10 L 4.30-5.52 10^6/uL Hemoglobin 12.3 L 13.3-17.7 g/dL Hematocrit 37 L 40-54 % Mean Corpuscular Volume 91 80-99 fL Mean Corpuscular Hemoglobin 30 25-34 pg Mean Corpuscular Hemoglobin Concent 33 32-36 g/dL Red Cell Distribution Width 13.0 10.0-14.5 % Platelet Count 456 H 130-400 10^3/uL Mean Platelet Volume 9.5 9.0-12.2 fL Immature Granulocyte % (Auto) 1 % Neutrophils (%) (Auto) 67 42-75 % Lymphocytes (%) (Auto) 23 12-44 % Monocytes (%) (Auto) 9 0-12 % Eosinophils (%) (Auto) 1 0-10 % Basophils (%) (Auto) 0 0-10 % Neutrophils # (Auto) 10.2 H 1.8-7.8 10^3/uL Lymphocytes # (Auto) 3.5 1.0-4.0 10^3/uL Monocytes # (Auto) 1.3 H 0.0-1.0 10^3/uL Eosinophils # (Auto) 0.2 0.0-0.3 10^3/uL Basophils # (Auto) 0.0 0.0-0.1 10^3/uL Immature Granulocyte # (Auto) 0.1 0.0-0.1 10^3/uL Diagnosis/Problems Diagnosis/Problems (1) Pericardial effusion Assessment & Plan: Etiology unclear. The patient may have had a recent viral illness although he had one negative COVID test. He has been fully vaccinated for COVID as well as boosted with omicron booster. He does have an elevated white blood cell count but he does not have a fever at this time. He underwent a pericardiocentesis on 05/11 that removed approximately 560 mL of bloody fluid. The pericardial drain was left in overnight and removed on 05/12. A repeat echocardiogram on 05/13 showed no reaccumulation of fluid. Laboratory studies show no bacteria on gram stain and cytology was negative for malignancy. Cultures are pending but negative to date. This may end up being an idiopathic pericardial effusion. (2) Paroxysmal atrial fibrillation Assessment & Plan: This may have been brought on by the pericardial effusion. This resolved with diltiazem infusion but then recurred. I started him on beta- moses and weaned off the intravenous diltiazem. He had recurrent atrial fibrillation on 05/13. As such, I will start him on oral anticoagulation. I suspect as he recovers from the pericardial effusion, the atrial fibrillation should subside without any antiarrhythmic drugs. I will increase the metoprolol to twice daily dosing and this may help suppress some of the atrial fibrillation and also controlled heart rates if he has recurrent atrial fibrillation. (3) Primary hypertension Assessment & Plan: He was hypertensive on 05/11 following the pericardiocentesis and restarted his lisinopril at that time. He is also on beta-moses due to the atrial fibrillation. His blood pressures have improved. (4) Mixed hyperlipidemia Assessment & Plan: Continue statin medication. JARRED ESPINO JR, MD May 14, 2022 08:58
[2022-05-14] MEDS ORDERED: APIXABAN 5 MG (ELIQUIS) TABLET PO SCH (09:00)
--- NOTE | 2022-05-14 09:30 | Tele-ICU Progress Note ---
Subjective Date Seen by a Provider: May 14, 2022 Time Seen by a Provider: 09:29 Subjective/Events-last exam (Tele-ICU Physician , Progress Note ) Service provided via interactive audio and video telecommunications E-CARE system to a patient admitted to ICU bed in [facility]. Available chart/ vitals / labs / Images reviewed Video assessment done using teleICU camera, rest of exam as per RN Discussed with RN Events overnight : Afebrile hemodynamically stable Respiratory - 2l I/O = pos 400 Drips: Pressors- no Consultants: [facility] Hospital course: (05/10) 71yr old male admitted with Afib/rvr, pericardial effusion, and pleural effusion (05/11) s/p pericardiocentesis with 560ml of bloody fluid drained (05/13)d/c to tele - READMIT for cardizem drip. Aib rvr on floor - stable on arrival to ICU Patient is seen today due to persistent hypoxia A/P Acute resp insufficiency , hypoxia - 2 L - CXR and CTA show no pulm emb -NEG COVID and flu serology - keep neg fluid status pleural effusions L > R -no indications for TX thoracentesis now , dec05/12 -sx consulted for thora on LEFT Pericardial effusion with impending tamponade - Etiology unclear, labs pending (05/11) s/p pericardiocentesis with 560ml of bloody fluid drained- drain removed 05/13 - plans as per cards - cx pending Afib with RVR, pericardial effusion ( post viral CM ? - IMTERMITTENT SINUS TODAY after drained effusion - cards follow - ECHO EF 55% - heparin gtt OFF Recent viral syndrome - 4 weeks , serology neg now . Leukocytosis - follow off ABX Lines : periph , (Central Line Necessity Reviewed) Rosas: void OG: Nutrition: po Analgesia: Anxiety/ delirium VTE Prophylaxis: hep gtt off , contraindic with bloody effusion , SCD Stress Ulcer Prophylaxis: na Plans in collaboration with bedside consultants and IM MDs. Discussed with RN to reach out if any questions or concerns A total of 10 minutes of critical care time was devoted to this patient today, required to treat and/or prevent further deterioration of critical care condition ( as above ) . Sepsis Event Evaluation Height, Weight, BMI Height: 5'7.00" Weight: 198lbs. 0.0oz. [id number]; 31.73 BMI Method: Exam Exam Patient acknowledged, consented, and participated in this virtual visit which was conducted using real time audio/video Vital Signs Date Time Temp Pulse Resp B/P (MAP) Pulse Ox O2 Delivery O2 Flow Rate FiO2 05/14/22 08:00 102 18 142/88 (106) 93 Room Air 05/14/22 07:48 36.0 05/14/22 07:16 94 Room Air 0.00 05/14/22 07:08 98 Nasal Cannula 2.00 05/14/22 07:00 92 12 136/75 (95) 95 Room Air 05/14/22 07:00 90 05/14/22 06:00 94 20 152/76 (101) 97 Nasal Cannula 2.00 05/14/22 05:00 89 10 162/75 (104) 97 Nasal Cannula 2.00 05/14/22 04:00 36.6 85 10 162/73 (102) 97 Nasal Cannula 2.00 05/14/22 04:00 97 Nasal Cannula 2.00 05/14/22 03:00 95 12 165/91 (115) 96 Nasal Cannula 2.00 05/14/22 01:00 87 05/14/22 00:00 91 33 120/87 (98) 97 Nasal Cannula 4.00 05/13/22 23:40 95 126/73 05/13/22 23:31 96 Nasal Cannula 2.00 05/13/22 23:30 92 10 156/73 (100) 97 Nasal Cannula 4.00 05/13/22 23:29 92 10 126/73 (90) 96 Nasal Cannula 2.00 05/13/22 23:15 131 10 125/91 (102) 95 Nasal Cannula 4.00 05/13/22 23:00 138 12 146/84 (104) 96 Nasal Cannula 4.00 05/13/22 22:59 36.9 152 13 146/84 (104) 97 Nasal Cannula 2.00 05/13/22 22:45 138 12 124/79 (94) 96 Nasal Cannula 4.00 05/13/22 22:18 35.9 95 98 05/13/22 21:01 98 Nasal Cannula 4.00 05/13/22 20:15 94 135/72 (93) 05/13/22 20:02 35.9 95 18 181/73 (109) 97 Nasal Cannula 4.00 05/13/22 20:00 Nasal Cannula 3.00 05/13/22 19:00 94 05/13/22 16:39 96 Nasal Cannula 3.00 05/13/22 15:08 96 Nasal Cannula 3.00 05/13/22 15:00 36.5 91 16 148/66 (93) 98 Nasal Cannula 3.00 05/13/22 14:23 94 05/13/22 12:29 89 05/13/22 12:00 37.0 84 12 146/74 (98) 94 Nasal Cannula 2.00 05/13/22 10:00 93 14 132/70 (90) 94 High Flow N/C 2.00 I & O 05/14/22 07:00 Intake Total 1330 ml Output Total 1500 ml Balance -170 ml Height & Weight Height: 5'7.00" Weight: 198lbs. 0.0oz. [id number]; 31.73 BMI Method: General Appearance: No Apparent Distress, WD/WN, Chronically ill HEENT: PERRL/EOMI, Normal ENT Inspection Neck: Normal Inspection, Non Tender Respiratory: Chest Non Tender, Lungs Clear, Normal Breath Sounds, Wheezing Cardiovascular: Regular Rate, Rhythm, No Edema, No Gallop, No JVD, No Murmur, Normal Peripheral Pulses, Irregularly Irregular, Tachycardia Capillary Refill: Less Than 3 Seconds Peripheral Pulses: 2+ Radial Pulses (R), 2+ Radial Pulses (L) Gastrointestinal: non tender, soft Extremity: Non Tender, No Pedal Edema Neurologic/Psychiatric: Alert, Oriented x3, Normal Mood/Affect Skin: Normal Color, Warm/Dry Lymphatic: No Adenopathy Results Lab Laboratory Tests 05/13/22 04:35 05/14/22 04:45 05/14/22 04:50 Assessment/Plan Assessment/Plan 1 ROSETTE CAAL MD May 14, 2022 09:30
--- NOTE | 2022-05-14 10:25 | Diagnostic Imaging Report ---
INDICATION: Shortness of breath. COMPARISON with 05/12/2022. FINDINGS: Rather marked cardiac enlargement is again noted. There continues to be obscuration of the left hemidiaphragm. The right lung is well-aerated and clear. No evidence of pulmonary edema. No pneumothorax. IMPRESSION: Cardiomegaly with persistent opacification in the left lower lung. Dictated by: Dictated on workstation # [id number]
--- NOTE | 2022-05-14 13:25 | Progress Note - Hospitalist ---
KOLE OAKES 05/14/22 1325: Subjective HPI/CC On Admission New-Onset Atrial Fibrillation Subjective/Events-last exam Cristian(Goes by Ed) Jaz is a 71 yo male who was admitted to the ICU from the ED for new-onset afib. He is s/p pericardiocentesis on 05/10 and the tube was removed 05/12, fluid was bloody. Decubitus CXR revealed left pleural effusion. Surgery has been consulted regarding possible thoracentesis. Echocardiogram 04/29 5 showed EF 60% and no signs of reaccummulation of pericardial effusion, bilateral pleural effusions noted. Today Ed was seen with his , he was moved to the fourth floor yesterday, but last night a nurse said he was tachycardic and moved him back to the ICU where he quickly stabilized. His demeanor was calm but both him and his were confused about his state. Speaking to them calmed them down, and its planned to have them moved again to the fourth floor to monitor. Review of Systems General: Fatigue Pulmonary: No Dyspnea, No Cough, No Pleuritic Chest Pain Cardiovascular: No: Chest Pain, Edema, Lt Headedness Neurological: Weakness Objective Exam Vital Signs Vital Signs Date Time Temp Pulse Resp B/P (MAP) Pulse Ox O2 Delivery O2 Flow Rate FiO2 05/14/22 13:00 80 05/14/22 12:00 25 144/72 (96) 91 Room Air 05/14/22 11:41 36.2 05/14/22 07:16 0.00 05/10/22 20:28 21 Capillary Refill : Less Than 3 Seconds General Appearance: No Apparent Distress, WD/WN HEENT: PERRL/EOMI, TMs Normal, Normal ENT Inspection, Pharynx Normal Neck: Full Range of Motion, Normal Inspection, Non Tender, Supple Respiratory: Chest Non Tender, Lungs Clear, Normal Breath Sounds, No Accessory Muscle Use, No Respiratory Distress Cardiovascular: No Edema, No Gallop, No JVD, No Murmur, Normal Peripheral Pulses, Irregularly Irregular, Tachycardia Gastrointestinal: Normal Bowel Sounds, No Organomegaly, No Pulsatile Mass, Non Tender, Soft Back: Normal Inspection, No CVA Tenderness, No Vertebral Tenderness Extremity: Normal Capillary Refill, Normal Inspection, Normal Range of Motion, Non Tender, No Calf Tenderness, No Pedal Edema Neurologic/Psychiatric: Alert, Oriented x3, Normal Mood/Affect Skin: Normal Color, Warm/Dry Results/Procedures Lab Laboratory Tests 05/14/22 04:45 05/14/22 04:50 Patient resulted labs reviewed. Imaging: Reviewed Imaging Report Assessment/Plan Assessment and Plan Assess & Plan/Chief Complaint 1. New onset atrial fibrillation: metoprolol for rate control. Cardiology appreciated. 2. Pericardial effusion: s/p pericardiocentesis on 05/10, tube removed 05/12, fluid was bloody. Echo today had no signs of reaccummulation. 3. Pleural effusion: Treat patient's underlying atrial fibrillation and pericardial effusion. General surgery appreciated 4. Anemia: 05/13: hgb 12.6. Repeat CBC in 24 hours. 5. Hx of stroke of unknown etiology, 2012. 6. Hx of HTN, HLD. 7. Leukocytosis: Recheck CBC in 24 hours. 8. Sinus congestion: likely d/t presumed COVID in recent history Move to 4th floor given improved status and exam. PT, OT ordered. JINNY OCONNELL DO 05/15/22 0526: Supervisory-Addendum Brief Verification & Attestation Participated in pt care: history, MDM, physical Personally performed: exam, history, MDM, supervision of care Care discussed with: Medical Student Procedures: n/a Results interpretation: Verified all documentation Verification and Attestation of Medical Student E/M Service A medical student performed and documented this service in my presence. I reviewed and verified all information documented by the medical student and made modifications to such information, when appropriate. I personally performed the physical exam and medical decision making. Jinny Oconnell May 15, 2022,05:26 KOLE OAKSE May 14, 2022 13:25 JINNY OCONNELL DO May 15, 2022 05:26
[2022-05-14] MEDS ORDERED: METO50TA7 PO (16:06)
[2022-05-14] MEDS ORDERED: APIX5TAB PO ×2 (16:06→16:35)
--- NOTE | 2022-05-14 16:07 | Discharge Summary ---
Discharge Summary Hospital Course Was the Problem List Reviewed?: Yes Problems/Dx: (1) Pericardial effusion (2) Paroxysmal atrial fibrillation (3) Primary hypertension (4) Mixed hyperlipidemia Hospital Course Date of Admission: May 11, 2022 at 10:00 Admission Diagnosis : [facility] Date of Discharge: 05/14/22 Discharge Diagnosis: [ ] Hospital Course: Patient had a lengthy hospital course when he presented with new onset A. fib with RVR. Cardizem drip initiated. Pericardial effusion was drained and pericardiocentesis per Dr. Oconnor. Pleural effusion appeared to resolve and did not require thoracentesis. He ultimately improved enough to discharge after weaned off oxygen and A. fib was managed with metoprolol and Eliquis and he was discharged in improved condition. Labs and Pending Lab Test: Laboratory Tests 05/14/22 04:45: Sodium Level 134L, Potassium Level 4.3, Chloride Level 97L, Carbon Dioxide Level 29, Anion Gap 8, Blood Urea Nitrogen 8, Creatinine 0.64, Estimat Glomerular Filtration Rate 101, BUN/Creatinine Ratio 13, Glucose Level 99, Calcium Level 8.7, Corrected Calcium 9.4, Magnesium Level 1.9, Total Bilirubin 0.4, Aspartate Amino Transf (AST/SGOT) 47H, Alanine Aminotransferase (ALT/SGPT) 62H, Alkaline Phosphatase 125, Total Protein 5.8L, Albumin 3.1L 05/14/22 04:50: White Blood Count 15.2H, Red Blood Count 4.10L, Hemoglobin 12.3L, Hematocrit 37L , Mean Corpuscular Volume 91, Mean Corpuscular Hemoglobin 30, Mean Corpuscular Hemoglobin Concent 33, Red Cell Distribution Width 13.0, Platelet Count 456H, Mean Platelet Volume 9.5, Immature Granulocyte % (Auto) 1, Neutrophils (%) (Auto) 67, Lymphocytes (%) (Auto) 23, Monocytes (%) (Auto) 9, Eosinophils (%) (Auto) 1, Basophils (%) (Auto) 0, Neutrophils # (Auto) 10.2H, Lymphocytes # (Auto) 3.5, Monocytes # (Auto) 1.3H, Eosinophils # (Auto) 0.2, Basophils # (Auto) 0.0, Immature Granulocyte # (Auto) 0.1 Microbiology 05/11/22 Acid Fast Bacilli Culture (Ref Lab - Preliminary, Resulted Culture In Progress See Comments 05/10/22 MRSA Screen - Final, Complete MRSA not isolated Home Meds Active Metoprolol Succinate 50 Mg Tab.er.24h 50 Mg PO BID Eliquis (Apixaban) 5 Mg Tablet 5 Mg PO BID Reported Msm (Methylsulfonylmethane) 1,000 Mg Tablet 1,000 Mg PO DAILY Acetaminophen 500 Mg Tablet 500-1,000 Mg PO Q8H PRN Fish Oil 1,200 mg Fish Oil (Fish Oil/Dha/Epa) 1,200 Mg-144 Mg-216 Mg Capsule 1 Each PO DAILY Saw [place] 450 mg Capsule (Saw [place] Fruit/Zinc Picoli) 450 Mg-15 Mg Capsule 3 Each PO DAILY Aspirin EC (Aspirin) 81 Mg Tablet.dr 81 Mg PO HS Ibuprofen 200 Mg Tablet 400-600 Mg PO Q8H PRN Multi-Vitamin Daily (Multivitamin) 1 Each Tablet 1 Each PO DAILY Lisinopril 10 Mg Tablet 10 Mg PO DAILY Lovastatin 20 Mg Tablet 20 Mg PO HS Assessment/Pt Instructions PCP in 1 week Discharge Planning: <30 minutes discharge planning Discharge Instructions Discharge Diet: No Restrictions Discharge Physical Examination Vital Signs Vital Signs Date Time Temp Pulse Resp B/P (MAP) Pulse Ox O2 Delivery O2 Flow Rate FiO2 05/14/22 15:27 37.3 05/14/22 13:00 80 05/14/22 12:15 94 Room Air 05/14/22 12:00 25 144/72 (96) 05/14/22 07:16 0.00 05/10/22 20:28 21 General Appearance: No Apparent Distress, WD/WN, Chronically ill Allergies: Coded Allergies: No Known Drug Allergies (Unverified , 06/18/16) Discharge Summary Date of Admission May 11, 2022 at 10:00 Date of Discharge Discharge Date: May 14, 2022 Admission Diagnosis Assessment: New onset atrial fibrillation with rapid ventricular response Pericardial effusion Pleural effusions Recent COVID? Increase shortness of breath for 4 weeks Debility Plan: Cardiology consult Echo Supportive care Cardizem drip Oxygen Discharge Diagnosis Supportive care (1) Pericardial effusion Assessment & Plan: Etiology unclear. The patient may have had a recent viral illness although he had one negative COVID test. He has been fully vaccinated for COVID as well as boosted with omicron booster. He does have an elevated white blood cell count but he does not have a fever at this time. He underwent a pericardiocentesis on 05/11 that removed approximately 560 mL of bloody fluid. The pericardial drain was left in overnight and removed on 05/12. A repeat echocardiogram on 05/13 showed no reaccumulation of fluid. Laboratory studies show no bacteria on gram stain and cytology was negative for malignancy. Cultures are pending but negative to date. This may end up being an idiopathic pericardial effusion. (2) Paroxysmal atrial fibrillation Assessment & Plan: This may have been brought on by the pericardial effusion. This resolved with diltiazem infusion but then recurred. I started him on beta- moses and weaned off the intravenous diltiazem. He had recurrent atrial fibrillation on 05/13. As such, I will start him on oral anticoagulation. I suspect as he recovers from the pericardial effusion, the atrial fibrillation should subside without any antiarrhythmic drugs. I will increase the metoprolol to twice daily dosing and this may help suppress some of the atrial fibrillation and also controlled heart rates if he has recurrent atrial fibrillation. (3) Primary hypertension Assessment & Plan: He was hypertensive on 05/11 following the pericardiocentesis and restarted his lisinopril at that time. He is also on beta-moses due to the atrial fibrillation. His blood pressures have improved. (4) Mixed hyperlipidemia Assessment & Plan: Continue statin medication. VALENTIN OCONNELL DO May 14, 2022 16:07
[2022-05-14] MEDS ORDERED: meTOproloL SUCCINATE 50 MG (TOPROL XL) TAB PO SCH ×2 (16:30→21:00)
[2022-05-14] MEDS ORDERED: RIVA20TA PO (16:36)
== END 2022-05-14 17:05 | disposition home or self-care (01) | DRG 315 ==
LOC: EDUNIT# 13:16 → ER FS 13:19 → ICU 18:06 → OBSVTOIN 05-11 10:00 → 4TH 05-13 14:00 → ICU 05-13 22:46
PROVIDERS: ADMIT Internal Medicine; ATTEND Internal Medicine
PROC: 0W9D30Z Drainage of Pericardial Cavity with Drainage Device, Percutaneous Approach (ICD-10-PCS; principal; 2022-05-11)
PROC: 5A0945A Assistance with Respiratory Ventilation, 24-96 Consecutive Hours, High Flow/Velocity Cannula (ICD-10-PCS; 2022-05-11)
DX: I31.39 Other pericardial effusion (noninflammatory) (principal); J90 Pleural effusion, not elsewhere classified; I48.0 Paroxysmal atrial fibrillation; I31.4 Cardiac tamponade; I10 Essential (primary) hypertension; E78.2 Mixed hyperlipidemia; Z20.822 Contact with and (suspected) exposure to COVID-19; D64.9 Anemia, unspecified; Z86.73 Personal history of transient ischemic attack (TIA), and cerebral infarction without residual deficits; E78.5 Hyperlipidemia, unspecified; D72.829 Elevated white blood cell count, unspecified; R09.02 Hypoxemia; R06.89 Other abnormalities of breathing; N40.0 Benign prostatic hyperplasia without lower urinary tract symptoms; Z79.82 Long term (current) use of aspirin; Z79.899 Other long term (current) drug therapy
CPT/HCPCS: 33017; 36415; 71045; 71046; 71275; 80053; 80061; 82805; 82945; 83615; 83735; 83880; 84100; 84145; 84157; 84443; 84484; 85007; 85025; 85027; 85379; 85730; 87015; 87070; 87075; 87081; 87101; 87116; 87205; 87206; 87636; 89051; 93005; 93306; 93308; 94640; 94664; G0378; Q9967

== ENCOUNTER → 2022-06-11 | Outpatient (CLI) | payer MEDICARE, OTHER ==
[~2022-06-11] MED LIST changes: +ACET-93 PO; +APIX5TAB PO; +ASPI-1238 PO; +FISH1CAP15 PO; +METH100054 PO; +METO50TA7 PO; +RIVA20TA PO; +SAW1CAPS8 PO
--- NOTE | 2022-06-11 17:27 | Diagnostic Imaging Report ---
Indication: Pericardial effusion. Compared: 05/14/2022 Findings: Left pleural effusion and lower lobe consolidation showed no substantial change, nonacute appearing left rib deformity stable. The right lung clear. Some right lateral pleural thickening or lateral pleural fluid unchanged. Heart size stable. Impression: Left basilar pleural-parenchymal opacity and rib deformities unchanged. No pneumothorax. Dictated on workstation # [id number]
== END ==
LOC: CARD 13:06
PROVIDERS: ATTEND Internal Medicine Cardiovascular Disease
DX: I31.31 Malignant pericardial effusion in diseases classified elsewhere (principal)
CPT/HCPCS: 71046; C8929; 93306

== ENCOUNTER → 2022-07-01 | Outpatient (CLI) | payer MEDICARE, OTHER ==
--- NOTE | 2022-07-01 13:08 | Diagnostic Imaging Report ---
Examination: Chest sonogram. HISTORY: Pleural effusions. FINDINGS: There is a small left pleural effusion with an estimated 500 mL of fluid present. No right-sided pleural effusion is seen. IMPRESSION: 1. Small left pleural effusion. Dictated by: Dictated on workstation # [id number]
== END ==
LOC: RAD FS 10:16
PROVIDERS: ATTEND Surgery
DX: J90 Pleural effusion, not elsewhere classified (principal)
CPT/HCPCS: 76604

== ENCOUNTER → 2022-09-09 | Outpatient (CLI) | payer MEDICARE, OTHER | LOC: CARDFS 11:28 | PROVIDERS: ATTEND Internal Medicine Cardiovascular Disease | DX: I34.0 Nonrheumatic mitral (valve) insufficiency (principal); I10 Essential (primary) hypertension; I25.10 Atherosclerotic heart disease of native coronary artery without angina pectoris | CPT/HCPCS: 93306 ==

== ENCOUNTER → 2022-11-10 | Outpatient (CLI) | payer MEDICARE, OTHER ==
[~2022-11-10] VITALS: Ht 170 cm; Wt 82.0 kg
[~2022-11-10] MED LIST changes: +CATHETER FLUSH 10 ML SYR IVP PRN; +REGADENOSON 0.4 MG/5 ML SYR (LEXISCAN) IV ONE
[2022-11-10 13:04] VITALS: BP 151/86
--- NOTE | 2022-11-10 15:41 | Cardiology Stress Test Report ---
Stress Test Report Date of Procedure/Referring: Date of Procedure: Nov 10, 2022 [facility] Admitting Physician Admitting Physician: Attending Physician: Kvng Mercado MD Indications: cp Baseline Heart Rate: 57 Baseline Blood Pressure: Blood Pressure Systolic: 151 Blood Pressure Diastolic: 86 Baseline Vitals Vital Signs Date Time Temp Pulse Resp B/P (MAP) Pulse Ox O2 Delivery O2 Flow Rate FiO2 11/10/22 13:04 54 151/86 (107) Baseline EKG: Baseline EKG: NSR Summary After explaining the procedure to the patient, he signed a consent and then brought to the stress nuclear laboratory. Patient received 0.4 mg Lexiscan for stress test, ECG, heart rate and blood pressure were monitored continuously. Resting and stress dose of radio tracer were injected, imaging was acquired and reviewed in short axis, horizontal long axis and vertical long axis views. TID: 1.12 SSS: 0 SDS: 0 EF: 55 Patient tolerated Lexiscan well No significant ischemia or infarction noted on SPECT images Normal left ventricular size, ejection fraction 55% Copy Copies To 1: [facility]/KVNG PAYNE MD Nov 10, 2022 15:41
== END ==
LOC: CARD 11:26
PROVIDERS: ATTEND Internal Medicine Cardiovascular Disease
DX: I10 Essential (primary) hypertension (principal); I25.10 Atherosclerotic heart disease of native coronary artery without angina pectoris
CPT/HCPCS: 78452; 93017; A9502